=== PATIENT | male | born 1935 | race African-American/Black ===

== ENCOUNTER 2017-12-14 07:16 | Outpatient (CLI) | payer MEDICARE ==
--- NOTE | 2017-12-14 09:34 | Cat Scan Report ---
CT ABDOMEN WITHOUT CONTRAST: HISTORY: Weight loss, pancreatic dysfunction, liver dysfunction. COMPARISON: CT abdomen pelvis without contrast dated 11/16/12. TECHNIQUE: Helical CT in 1.25mm intervals without IV contrast. Sagittal and coronal reconstructions. FINDINGS: Lung bases: Adequately aerated. Minor scarring in the right middle lobe is noted. Mild cardiomegaly. Liver: The liver appears normal size, contour and attenuation. A 2 cm left hepatic lobe cyst is unchanged. No obvious parenchymal lung disease or liver mass on noncontrast CT. Biliary system: Normal. Pancreas: Within normal limits. Spleen: Normal. 7.7 cm in length. Kidneys/ureters: The kidneys are normal size, contour and position. A 1 cm exophytic cyst is noted near the superior pole of the left kidney. No obvious mass, calcifications or hydronephrosis. The visualized ureters are unremarkable. Adrenal glands: Normal. Aorta: Mild distal calcifications. No aneurysm. Intestines: No evidence for obstruction or focal inflammation in the visualized GI tract. There does appear to be 2 small polypoid lesions in the descending duodenum near the level of the pancreatic head measuring up to 1.1 cm. The clinical significance of these are unclear. These could represent polyps. The remainder of the visualized small bowel is within normal limits. There is moderate stool in the proximal colon. Appendix: Normal. Ascites: None. Adenopathy: None. Musculoskeletal: Intact. Moderate thoracolumbar spondylosis is noted. No fracture or suspicious bony lesion. IMPRESSION: Mild cardiomegaly. 2 polypoid lesions are suggested in the descending duodenum as outlined above which are of uncertain clinical significance. Consider direct visualization with EGD. Solitary liver cyst and left renal cyst.
== END 2017-12-14 07:17 | disposition home or self-care (01) ==
LOC: CT 07:16
PROVIDERS: ATTEND Family Medicine
DX: I51.7 Cardiomegaly (principal); N28.1 Cyst of kidney, acquired; K76.89 Other specified diseases of liver; N18.6 End stage renal disease
CPT/HCPCS: 74150

== ENCOUNTER 2019-05-25 23:17 | Emergency (ER) | payer MEDICARE ==
[2019-05-25] MEDS ORDERED: hydrALAZINE 20 MG/1 ML INJ IV ONE (23:55)
--- NOTE | 2019-05-26 00:12 | Emergency Department Report ---
ED General Adult HPI - General Chief complaint: High BP Stated complaint: HEADACHE HTN Time Seen by Provider: 05/25/19 23:29 Source: patient, family, EMS Mode of arrival: Stretcher Limitations: Language Barrier - History of Present Illness Initial comments: Patient is an 83-year-old male presents emergency room with complaints of elevated blood pressure that began today. The patient states he has associated headache and dizziness for the last 2 hours. He states he is also had a dry cough for a month. He denies any vision changes, chest pain, shortness of breath, palpitations, leg swelling, numbness, weakness. He has a past medical history of hypertension, diabetes, BPH. He takes nifedipine, Benzapril, Lasix. He has not missed any doses. He denies any cardiac history. language interpretation by patient's daughter - Related Data Previous Rx's Medication Instructions Recorded Last Taken Type Amoxicillin 500 mg PO Q8H #30 capsule 03/14/18 Unknown Rx Losartan [Cozaar] 25 mg PO QDAY #30 tablet 05/26/19 Unknown Rx Allergies Allergy/AdvReac Type Severity Reaction Status Date / Time No Known Allergies Allergy Unverified 12/14/17 07:17 ED Review of Systems ROS: Stated complaint: HEADACHE HTN Other details as noted in HPI Comment: All other systems reviewed and negative ED Past Medical Hx - Past Medical History Previous Medical History?: Yes Hx Hypertension: Yes Hx Diabetes: Yes - Surgical History Past Surgical History?: No - Social History Smoking Status: Never Smoker Substance Use Type: None - Medications Home Medications: Home Medications Medication Instructions Recorded Confirmed Last Taken Type Amoxicillin 500 mg PO Q8H #30 capsule 03/14/18 Unknown Rx Losartan [Cozaar] 25 mg PO QDAY #30 tablet 05/26/19 Unknown Rx ED Physical Exam - General Limitations: Language Barrier General appearance: alert, in no apparent distress - Head Head exam: Present: atraumatic, normocephalic - Eye Eye exam: Present: normal appearance, PERRL, EOMI - ENT ENT exam: Present: mucous membranes moist - Respiratory Respiratory exam: Present: normal lung sounds bilaterally. Absent: respiratory distress, wheezes, rales, rhonchi, stridor, chest wall tenderness, accessory muscle use, decreased breath sounds, prolonged expiratory - Cardiovascular Cardiovascular Exam: Present: regular rate, normal rhythm, normal heart sounds. Absent: systolic murmur, diastolic murmur, rubs, gallop - GI/Abdominal GI/Abdominal exam: Present: soft, normal bowel sounds. Absent: distended, tenderness, guarding, rebound, rigid - Extremities Exam Extremities exam: Absent: pedal edema - Neurological Exam Neurological exam: Present: alert, oriented X3, CN II-XII intact, normal gait, other (normal finger to nose, normal heel to carrillo, 5/5 strength in the BUE/BLE, sensation intact, no focal neuro deficit). Absent: motor sensory deficit - Psychiatric Psychiatric exam: Present: normal affect, normal mood - Skin Skin exam: Present: warm, dry, intact ED Course Vital Signs 05/25/19 05/26/19 05/26/19 23:35 00:00 00:33 Temperature 97.8 F Pulse Rate 63 Respiratory 18 Rate Blood Pressure 203/69 168/62 175/60 O2 Sat by Pulse 100 95 95 Oximetry 05/26/19 05/26/19 05/26/19 00:37 01:00 01:15 Temperature Pulse Rate 70 Respiratory Rate Blood Pressure 175/60 145/54 168/62 O2 Sat by Pulse 98 98 Oximetry 05/26/19 05/26/19 05/26/19 01:30 01:41 01:45 Temperature Pulse Rate Respiratory 18 Rate Blood Pressure 131/54 155/55 O2 Sat by Pulse 97 100 98 Oximetry ED Medical Decision Making - Lab Data Result diagrams: 05/26/19 00:02 05/26/19 00:02 Lab Results 05/26/19 05/26/19 05/26/19 Range/Units 00:02 00:02 00:02 WBC 5.9 (4.5-11.0) K/mm3 RBC 3.45 L (3.65-5.03) M/mm3 Hgb 11.7 L (11.8-15.2) gm/dl Hct 34.5 L (35.5-45.6) % MCV 100 H (84-94) fl MCH 34 H (28-32) pg MCHC 34 (32-34) % RDW 13.7 (13.2-15.2) % Plt Count 219 (140-440) K/mm3 Eos % (Auto) Hairspring Adjuster Add Manual Diff Complete Total Counted 100 Seg Neuts % (Manual) 47.0 (40.0-70.0) % Band Neutrophils % 2.0 % Lymphocytes % (Manual) 21.0 (13.4-35.0) % Reactive Lymphs % (Man) 0 % Monocytes % (Manual) 4.0 (0.0-7.3) % Eosinophils % (Manual) 23.0 H (0.0-4.3) % Basophils % (Manual) 3.0 H (0.0-1.8) % Metamyelocytes % 0 % Myelocytes % 0 % Promyelocytes % 0 % Blast Cells % 0 % Nucleated RBC % Not Reportable Seg Neutrophils # Man 2.8 (1.8-7.7) K/mm3 Band Neutrophils # 0.1 K/mm3 Lymphocytes # (Manual) 1.2 (1.2-5.4) K/mm3 Abs React Lymphs (Man) 0.0 K/mm3 Monocytes # (Manual) 0.2 (0.0-0.8) K/mm3 Eosinophils # (Manual) 1.4 H (0.0-0.4) K/mm3 Basophils # (Manual) 0.2 H (0.0-0.1) K/mm3 Metamyelocytes # 0.0 K/mm3 Myelocytes # 0.0 K/mm3 Promyelocytes # 0.0 K/mm3 Blast Cells # 0.0 K/mm3 WBC Morphology Not Reportable Hypersegmented Neuts Not Reportable Hyposegmented Neuts Not Reportable Hypogranular Neuts Not Reportable Smudge Cells Not Reportable Toxic Granulation Not Reportable Toxic Vacuolation Not Reportable Dohle Bodies Not Reportable Pelger-Huet Anomaly Not Reportable Devante Rods Not Reportable Platelet Estimate Consistent w auto Clumped Platelets Not Reportable Plt Clumps, EDTA Not Reportable Large Platelets Not Reportable Giant Platelets Not Reportable Platelet Satelliting Not Reportable Plt Morphology Comment Not Reportable RBC Morphology Not Reportable Dimorphic RBCs Not Reportable Polychromasia Not Reportable Hypochromasia Not Reportable Poikilocytosis Not Reportable Anisocytosis Not Reportable Microcytosis Not Reportable Macrocytosis Few Spherocytes Not Reportable Pappenheimer Bodies Not Reportable Sickle Cells Not Reportable Target Cells Not Reportable Tear Drop Cells Not Reportable Ovalocytes Few Helmet Cells Not Reportable Galloway-Reydon Bodies Not Reportable [place] Rings Not Reportable [place] Cells Not Reportable Bite Cells Not Reportable Crenated Cell Not Reportable Elliptocytes Not Reportable Acanthocytes (Spur) Not Reportable Rouleaux Not Reportable Hemoglobin C Crystals Not Reportable Schistocytes Not Reportable Malaria parasites Not Reportable King Bodies Not Reportable Hem Pathologist Commnt No Sodium 131 L (137-145) mmol/L Potassium 4.2 (3.6-5.0) mmol/L Chloride 95.1 L (98-107) mmol/L Carbon Dioxide 24 (22-30) mmol/L Anion Gap 16 mmol/L BUN 27 H (9-20) mg/dL Creatinine 1.2 (0.8-1.5) mg/dL Estimated GFR 58 ml/min BUN/Creatinine Ratio 23 % Glucose 117 H (75-100) mg/dL Calcium 9.6 (8.4-10.2) mg/dL Phosphorus 3.80 (2.5-4.5) mg/dL Magnesium 2.00 (1.7-2.3) mg/dL Total Bilirubin 0.20 (0.1-1.2) mg/dL AST 23 (5-40) units/L ALT 15 (7-56) units/L Alkaline Phosphatase 85 (35-129) units/L Total Creatine Kinase 109 (55-170) units/L Troponin T < 0.010 (0.00-0.029) ng/mL Total Protein 7.1 (6.3-8.2) g/dL Albumin 3.8 L (3.9-5) g/dL Albumin/Globulin Ratio 1.2 % Urine Color (Yellow) Urine Turbidity (Clear) Urine pH (5.0-7.0) Ur Specific [place] (1.003-1.030) Urine Protein (Negative) mg/dL Urine Glucose (UA) (Negative) mg/dL Urine Ketones (Negative) mg/dL Urine Blood (Negative) Urine Nitrite (Negative) Urine Bilirubin (Negative) Urine Urobilinogen (<2.0) mg/dL Ur Leukocyte Esterase (Negative) Urine WBC (Auto) (0.0-6.0) /HPF Urine RBC (Auto) (0.0-6.0) /HPF 05/26/19 Range/Units 00:45 WBC (4.5-11.0) K/mm3 RBC (3.65-5.03) M/mm3 Hgb (11.8-15.2) gm/dl Hct (35.5-45.6) % MCV (84-94) fl MCH (28-32) pg MCHC (32-34) % RDW (13.2-15.2) % Plt Count (140-440) K/mm3 Eos % (Auto) Add Manual Diff Total Counted Seg Neuts % (Manual) (40.0-70.0) % Band Neutrophils % % Lymphocytes % (Manual) (13.4-35.0) % Reactive Lymphs % (Man) % Monocytes % (Manual) (0.0-7.3) % Eosinophils % (Manual) (0.0-4.3) % Basophils % (Manual) (0.0-1.8) % Metamyelocytes % % Myelocytes % % Promyelocytes % % Blast Cells % % Nucleated RBC % Seg Neutrophils # Man (1.8-7.7) K/mm3 Band Neutrophils # K/mm3 Lymphocytes # (Manual) (1.2-5.4) K/mm3 Abs React Lymphs (Man) K/mm3 Monocytes # (Manual) (0.0-0.8) K/mm3 Eosinophils # (Manual) (0.0-0.4) K/mm3 Basophils # (Manual) (0.0-0.1) K/mm3 Metamyelocytes # K/mm3 Myelocytes # K/mm3 Promyelocytes # K/mm3 Blast Cells # K/mm3 WBC Morphology Hypersegmented Neuts Hyposegmented Neuts Hypogranular Neuts Smudge Cells Toxic Granulation Toxic Vacuolation Dohle Bodies Pelger-Huet Anomaly Devante Rods Platelet Estimate Clumped Platelets Plt Clumps, EDTA Large Platelets Giant Platelets Platelet Satelliting Plt Morphology Comment RBC Morphology Dimorphic RBCs Polychromasia Hypochromasia Poikilocytosis Anisocytosis Microcytosis Macrocytosis Spherocytes Pappenheimer Bodies Sickle Cells Target Cells Tear Drop Cells Ovalocytes Helmet Cells Galloway-Reydon Bodies [place] Rings Renetta Cells Bite Cells Crenated Cell Elliptocytes Acanthocytes (Spur) Rouleaux Hemoglobin C Crystals Schistocytes Malaria parasites King Bodies Hem Pathologist Commnt Sodium (137-145) mmol/L Potassium (3.6-5.0) mmol/L Chloride (98-107) mmol/L Carbon Dioxide (22-30) mmol/L Anion Gap mmol/L BUN (9-20) mg/dL Creatinine (0.8-1.5) mg/dL Estimated GFR ml/min BUN/Creatinine Ratio % Glucose (75-100) mg/dL Calcium (8.4-10.2) mg/dL Phosphorus (2.5-4.5) mg/dL Magnesium (1.7-2.3) mg/dL Total Bilirubin (0.1-1.2) mg/dL AST (5-40) units/L ALT (7-56) units/L Alkaline Phosphatase (35-129) units/L Total Creatine Kinase (55-170) units/L Troponin T (0.00-0.029) ng/mL Total Protein (6.3-8.2) g/dL Albumin (3.9-5) g/dL Albumin/Globulin Ratio % Urine Color Colorless (Yellow) Urine Turbidity Clear (Clear) Urine pH 7.0 (5.0-7.0) Ur Specific [place] 1.004 (1.003-1.030) Urine Protein >500 (Negative) mg/dL Urine Glucose (UA) Neg (Negative) mg/dL Urine Ketones Neg (Negative) mg/dL Urine Blood Sm (Negative) Urine Nitrite Neg (Negative) Urine Bilirubin Neg (Negative) Urine Urobilinogen < 2.0 (<2.0) mg/dL Ur Leukocyte Esterase Neg (Negative) Urine WBC (Auto) 1.0 (0.0-6.0) /HPF Urine RBC (Auto) 3.0 (0.0-6.0) /HPF - Radiology Data Radiology results: report reviewed CT BRAIN: 05/26/2019 INDICATION / CLINICAL INFORMATION: Headache, HTN Urgency. COMPARISON: None available. FINDINGS: BRAIN/INTRACRANIAL STRUCTURES: Unenhanced CT images of the brain demonstrate no evidence of acute intracranial abnormality. Ventricles and sulci are prominent in size, consistent with normal age-related atrophic change There is no evidence of acute ischemic injury, hemorrhage, or mass. There are no abnormal extra- axial fluid collections. Atherosclerotic vascular calcifications are present in the distal internal carotid arteries and vertebral arteries. EXTRACRANIAL STRUCTURES: Unremarkable. IMPRESSION: No acute abnormality. Chronic and age-related changes. All CT scans at this location are performed using dose reduction to SHEREEN painting of automated exposure control. Signer Name: Lex Schultz MD Signed: 05/26/2019 12:46 AM Workstation Name: [email or web address] Transcribed By: JACINTO Dictated By: Lex Schultz MD Electronically Authenticated By: Lex Schultz MD Signed Date/Time: 05/26/196 DD/ TD/TT: CHEST 2 VIEWS, 05/26/2019 12:12 AM INDICATION: Hypertension. Cough for one month. COMPARISON: None FINDINGS: Support devices: None Heart: The heart is normal in size. Lungs/pleura: The lungs are clear of focal airspace disease or significant pleural effusion. Additional findings: There are moderate bony degenerative changes of the thoracic spine. IMPRESSION: 1. No evidence of acute cardiopulmonary process. Signer Name: Pati Mckeon MD Signed: 05/26/2019 12:39 AM Workstation Name: [id number] Transcribed By: AMADOR Dictated By: Pati Mckeon MD Electronically Authenticated By: Pati Mckeon MD Signed Date/Time: 05/26/1938 DD/ TD/TT: - Medical Decision Making Patient is an 83-year-old male presents emergency room with complaints of elevated blood pressure that began today. The patient states he has associated headache and dizziness for the last 2 hours. He states he is also had a dry cough for a month. He denies any vision changes, chest pain, shortness of breath, palpitations, leg swelling, numbness, weakness. He has a past medical history of hypertension, diabetes, BPH. He takes nifedipine, Benzapril, Lasix. He has not missed any doses. He denies any cardiac history. language interpretation by patient's daughter. initial vitals with elevated blood pressure which improved upon 5mg of IV hydralazine. CBC with very mild anemia. BMP with very mild dehydration given 1L NS. UA with proteinuria, otherwise stable. CT head: No acute abnormality. Chronic and age-related changes. CXR: 1. No evidence of acute cardiopulmonary process. on reassessment pt is feeling much better and his headache has completely resolved. pt given prescription for losartan, advised pt to stop taking benazepril due to chronic dry cough. advised pt please stop taking benazepril and begin taking losartan. Follow-up with your primary care doctor in the next 2-3 days. Please keep a blood pressure log and take your blood pressure 3 times a day and take this to your primary care doctor. Increase your water intake. Eat a low-sodium diet. Return to the emergency room immediately for any new or worsening symptoms including but not limited to worsening headache, vision changes, vomiting, numbness, weakness, confusion, etc. discussed case with Dr. Ray who agreed with plan and discharge to follow up with PCP as an outpatient. - Differential Diagnosis HTN urgency, HTN emergency, ICH, SAH, aortic dissection, CAMILLA Critical care attestation.: If time is entered above; I have spent that time in minutes in the direct care of this critically ill patient, excluding procedure time. ED Disposition Clinical Impression: Elevated blood pressure reading Hypertension Qualifiers: Hypertension type: unspecified Qualified Code(s): I10 - Essential (primary) hypertension Headache Qualifiers: Headache type: unspecified Headache chronicity pattern: acute headache Intractability: not intractable Qualified Code(s): R51 - Headache Disposition: DC- TO HOME OR SELFCARE Is pt being admited?: No Does the pt Need Aspirin: No Condition: Stable Instructions: Hypertension (ED) Additional Instructions: Please stop taking benazepril and begin taking losartan. Follow-up with your primary care doctor in the next 2-3 days. Please keep a blood pressure log and take your blood pressure 3 times a day and take this to your primary care doctor. Increase your water intake. Eat a low-sodium diet. Return to the emergency room immediately for any new or worsening symptoms including but not limited to worsening headache, vision changes, vomiting, numbness, weakness, confusion, etc. Prescriptions: Losartan [Cozaar] 25 mg PO QDAY #30 tablet Referrals: PRIMARY CAREMD [Primary Care Provider] - 2-3 Days Time of Disposition: 01:46 Print Language: CZECH
[2019-05-26 00:21] LABS: Hematocrit 34.5 % (35.5-45.6); Hemoglobin 11.7 gm/dl (11.8-15.2); Mean Corpuscular HGB Conc 34 % (32-34); Mean Corpuscular Volume 100 fl (84-94); Platelet Count 219 K/mm3 (140-440); Red Blood Count 3.45 M/mm3 (3.65-5.03); Red Cell Distribution Width 13.7 % (13.2-15.2)
[2019-05-26 00:39] LABS: Albumin 3.8 g/dL (3.9-5); Calcium 9.6 mg/dL (8.4-10.2)
[2019-05-26] MEDS ORDERED: SODIUM CHLORIDE 0.9% 1000 ML 1,000 ML IV ONE (00:42)
--- NOTE | 2019-05-26 00:43 | XRay Report ---
CHEST 2 VIEWS, 05/26/2019 12:12 AM INDICATION: Hypertension. Cough for one month. COMPARISON: None FINDINGS: Support devices: None Heart: The heart is normal in size. Lungs/pleura: The lungs are clear of focal airspace disease or significant pleural effusion. Additional findings: There are moderate bony degenerative changes of the thoracic spine. IMPRESSION: 1. No evidence of acute cardiopulmonary process. Signer Name: Pati Mckeon MD Signed: 05/26/2019 12:39 AM Workstation Name: [email or web address]
--- NOTE | 2019-05-26 00:50 | Cat Scan Report ---
CT BRAIN: 05/26/2019 INDICATION / CLINICAL INFORMATION: Headache, HTN Urgency. COMPARISON: None available. FINDINGS: BRAIN/INTRACRANIAL STRUCTURES: Unenhanced CT images of the brain demonstrate no evidence of acute int racranial abnormality. Ventricles and sulci are prominent in size, consistent with normal age-related atrophic change There is no evidence of acute ischemic injury, hemorrhage, or mass. There are no abnormal extra-axial fluid collections. Atherosclerotic vascular calcifications are present in the distal internal carotid arteries and verte bral arteries. EXTRACRANIAL STRUCTURES: Unremarkable. IMPRESSION: No acute abnormality. Chronic and age-related changes. All CT scans at this location are performed using dose reduction to ALARA by means of automated expos ure control. Signer Name: Lex Schultz MD Signed: 05/26/2019 12:46 AM Workstation Name: [email or web address]
[2019-05-26 00:57] LABS: Bilirubin,Urine NEG (Negative); Blood,Urine SM (Negative); Color,Urine Colorless (Yellow); Urobilinogen,Urine < 2.0 mg/dL (<2.0)
[2019-05-26 01:03] LABS: Protein,Urine >500 mg/dL (Negative)
[2019-05-26 01:59] VITALS: BP 155/55
[2019-05-26 03:11] LABS: Band Neutrophils # (Manual) 0.1 K/mm3; Ovalocytes Few; Total Cells Counted 100
[2019-05-26 03:12] LABS: Macrocytosis Few; Platelet Estimate Consistent w Auto
== END 2019-05-26 02:09 | disposition home or self-care (01) ==
LOC: ED 23:17
DX: I10 Essential (primary) hypertension (principal); R51 Headache; E11.9 Type 2 diabetes mellitus without complications; Z79.899 Other long term (current) drug therapy
CPT/HCPCS: 36415; 70450; 71046; 80053; 81001; 82550; 83735; 84100; 84484; 85007; 85025; 93005; 93010; 96361; 96374; J0360; J7030

== ENCOUNTER 2020-11-13 09:59 | Outpatient (CLI) | payer MEDICARE ==
--- NOTE | 2020-11-13 12:20 | Cat Scan Report ---
EXAMINATION: CT chest wo con, CT abdomen pelvis wo con. HISTORY: ABNORMAL WEIGHT LOSS,ABNORMAL RESULTS OF LIVER FUNCTION STUDY COMPARISON: CT from 12/14/2017. TECHNIQUE: Volumetric CT scan of the chest, abdomen, and pelvis was performed without IV contrast. Ax ial, coronal, and sagittal reconstructions were obtained. All CT scans at this location are performe d using CT dose reduction for ALARA by means of automated exposure control. FINDINGS: CHEST: Calcified atherosclerotic plaque is noted throughout the nonaneurysmal thoracic aorta and major brach es, to include the coronary arteries. There is cardiac enlargement without pericardial effusion. Thyr oid gland is unremarkable. Prominent but nonenlarged mediastinal lymph nodes. Evaluation for hilar ad enopathy is limited without intravenous contrast, though no hilar fullness is identified. There is no axillary lymphadenopathy. There is bibasilar volume loss. No focal infiltrate. No pleural effusion o r pneumothorax. No acute osseous findings. ABDOMEN/PELVIS: 3.2 cm hepatic cyst. Liver is otherwise unremarkable. Gallbladder is unremarkable and there is no joseluis iary dilatation. Pancreas, spleen, adrenals, kidneys and bladder are unremarkable. Prostate is not en larged. Moderate colonic stool burden. There is no evidence of colitis. Stomach and small bowel are normal in caliber. No small bowel obstruction or inflammation. Appendix is normal. Moderate atherosclerotic calcification of the abdominal aorta and major branching vessels. No evidenc e of aneurysm. Nonspecific small volume free fluid in the pelvis. No organized collection or free air . Moderate multilevel lumbar spondylosis. No acute process. IMPRESSION: 1. No acute abnormality of the chest, abdomen, or pelvis. No etiology to account for weight loss iden tified. 2. Moderate colonic stool burden. No evidence of colitis. 3. Other chronic and incidental findings as above. Signer Name: Isiah Aceves MD Signed: 11/13/2020 12:15 PM Workstation Name: [email or web address]
== END 2020-11-13 10:00 | disposition home or self-care (01) ==
LOC: CT 09:59
PROVIDERS: ATTEND Family Medicine
DX: K76.89 Other specified diseases of liver (principal); R63.4 Abnormal weight loss; R94.5 Abnormal results of liver function studies; D64.9 Anemia, unspecified; J90 Pleural effusion, not elsewhere classified; I70.0 Atherosclerosis of aorta; R59.0 Localized enlarged lymph nodes; R19.5 Other fecal abnormalities
CPT/HCPCS: 71250; 74176

== ENCOUNTER 2021-03-05 11:42 | Inpatient (IN) | payer MEDICARE ==
--- NOTE | 2021-03-05 12:01 | Event Note ---
ED Screening Note Date of service: 03/05/21 Time: 12:00 ED Screening Note: 85-year-old male presents emergency department with chief complaint of pain in his chest, vomiting and difficulty swallowing water after eating. Son at the bedside is translating states he was eating soup and no dense material when this started. He started to have pain in his chest and is having difficulty swallowing anything. Patient has past medical history of diabetes and hypertension. This initial assessment/diagnostic orders/clinical plan/treatment(s) is/are subject to change based on patients health status, clinical progression and re- assessment by fellow clinical providers in the ED. Further treatment and workup at subsequent clinical providers discretion. Patient/guardian urged not to elope from the ED as their condition may be serious if not clinically assessed and managed. Initial orders include: Cardiac protocol, lipase, chest x-ray
--- NOTE | 2021-03-05 12:36 | Emergency Department Report ---
ED General Adult HPI - General Chief complaint: Chest Pain Stated complaint: FEEL LIKE HE IS CHOKING, CHEST PAIN Time Seen by Provider: 03/05/21 12:15 Source: family Mode of arrival: Ambulatory Limitations: Language Barrier - History of Present Illness Initial comments: Patient is 85 years old male brought to the emergency room by his son who is translating for him. Patient son stated that he was drinking soup and all of a sudden he starts talking and spitting. Stated that he is unable to swallow anything even water. He also stated that he is complaining of mid chest pain since then. He described the chest pain as sharp with no radiation. Patient denied any fever or chills. No shortness of breath. Patient has history of diabetes and hypertension and both are well controlled according to the patient's son. - Related Data Previous Rx's Medication Instructions Recorded Last Taken Type Amoxicillin 500 mg PO Q8H #30 capsule 03/14/18 Unknown Rx Losartan [Cozaar] 25 mg PO QDAY #30 tablet 05/26/19 Unknown Rx Allergies Allergy/AdvReac Type Severity Reaction Status Date / Time No Known Allergies Allergy Verified 03/05/21 12:16 ED Review of Systems ROS: Stated complaint: FEEL LIKE HE IS CHOKING, CHEST PAIN Other details as noted in HPI Comment: All other systems reviewed and negative Constitutional: denies: chills, fever Respiratory: denies: cough, shortness of breath, SOB with exertion Cardiovascular: chest pain. denies: palpitations Gastrointestinal: denies: abdominal pain, nausea, vomiting Musculoskeletal: denies: back pain ED Past Medical Hx - Past Medical History Previous Medical History?: Yes Hx Hypertension: Yes Hx Diabetes: Yes - Social History Smoking Status: Never Smoker Substance Use Type: None - Medications Home Medications: Home Medications Medication Instructions Recorded Confirmed Last Taken Type Amoxicillin 500 mg PO Q8H #30 capsule 03/14/18 Unknown Rx Losartan [Cozaar] 25 mg PO QDAY #30 tablet 05/26/19 Unknown Rx ED Physical Exam - General Limitations: Language Barrier General appearance: alert, in no apparent distress - Head Head exam: Present: atraumatic, normocephalic, normal inspection - Eye Eye exam: Present: normal appearance, PERRL - ENT ENT exam: Present: normal exam, normal orophraynx, mucous membranes moist - Neck Neck exam: Present: normal inspection, full ROM. Absent: tenderness, meningismus - Respiratory Respiratory exam: Present: normal lung sounds bilaterally ( ). Absent: respiratory distress, wheezes, rales, rhonchi, chest wall tenderness, accessory muscle use, decreased breath sounds, prolonged expiratory - Cardiovascular Cardiovascular Exam: Present: regular rate, normal rhythm, normal heart sounds - GI/Abdominal GI/Abdominal exam: Present: soft, normal bowel sounds. Absent: distended, tenderness, guarding, rebound, rigid, organomegaly, mass, bruit, pulsatile mass, hernia - Extremities Exam Extremities exam: Present: normal inspection, full ROM, normal capillary refill. Absent: tenderness, pedal edema, joint swelling, calf tenderness - Back Exam Back exam: Present: normal inspection, full ROM. Absent: CVA tenderness (R), CVA tenderness (L), muscle spasm - Neurological Exam Neurological exam: Present: alert, oriented X3, CN II-XII intact, normal gait, reflexes normal. Absent: motor sensory deficit - Psychiatric Psychiatric exam: Present: normal mood - Skin Skin exam: Present: warm, intact, normal color ED Course Vital Signs 03/05/21 03/05/21 03/05/21 11:51 13:00 13:31 Temperature 97.8 F Pulse Rate 68 68 60 Respiratory 20 19 16 Rate Blood Pressure 159/47 162/48 162/48 O2 Sat by Pulse 98 99 96 Oximetry 03/05/21 03/05/21 03/05/21 14:00 14:22 14:30 Temperature Pulse Rate 54 L 66 Respiratory 14 16 18 Rate Blood Pressure 162/48 162/48 O2 Sat by Pulse 99 97 98 Oximetry 03/05/21 15:00 Temperature Pulse Rate 69 Respiratory 21 Rate Blood Pressure 162/48 O2 Sat by Pulse 97 Oximetry ED Medical Decision Making - Lab Data Result diagrams: 03/05/21 13:13 03/05/21 13:13 - EKG Data -: EKG Interpreted by Id EKG shows normal: sinus rhythm Rate: normal - EKG Data Interpretation: no acute changes - Radiology Data Radiology results: report reviewed - Medical Decision Making Patient is 85 years old male brought to the emergency room by his son who is translating for him. Patient son stated that he was drinking soup and all of a sudden he starts talking and spitting. Stated that he is unable to swallow anything even water. He also stated that he is complaining of mid chest pain since then. He described the chest pain as sharp with no radiation. Patient denied any fever or chills. No shortness of breath. Patient has history of diabetes and hypertension and both are well controlled according to the patient's son. EKG is unremarkable. Labs reviewed and is unremarkable including a negative troponin. Chest x-ray is negative for acute finding. Barium swallow is un remarkable. Patient is able to swallow water. I discussed the patient with his pedicurist on-call Dr. Ballard, advised to start patient on Protonix. I discussed the patient with Dr. Valero, he agreed to admit the patient to medical service for further management. Critical Care Time: Yes Critical care time in (mins) excluding proc time.: 30 Critical care attestation.: If time is entered above; I have spent that time in minutes in the direct care of this critically ill patient, excluding procedure time. ED Disposition Clinical Impression: Acute chest pain, Difficulty swallowing Disposition: 02 SHORT TERM HOSPITAL Is pt being admited?: Yes Condition: Stable Instructions: Chest Pain (ED)
--- NOTE | 2021-03-05 12:39 | XRay Report ---
CHEST 2 VIEWS INDICATION: Chest Pain possible esophageal FB. COMPARISON: None FINDINGS: Support devices: None. Heart: Within normal limits. Lungs/pleura: No acute air space or interstitial disease. No pneumothorax. Additional findings: No radiopaque foreign body is detected on x-ray. IMPRESSION: No acute findings. Signer Name: Kulwant Herron Jr, MD Signed: 03/05/2021 12:35 PM Workstation Name: [id number]
[2021-03-05 13:36] LABS: Basophils # (Auto) 0.1 K/mm3 (0.0-0.1); Basophils % (Auto) 1.3 % (0.0-1.8); Eosinophils # (Auto) 0.5 K/mm3 (0.0-0.4); Eosinophils % (Auto) 9.5 % (0.0-4.3); Hematocrit 34.1 % (35.5-45.6); Hemoglobin 11.3 gm/dl (11.8-15.2); Lymphocytes # (Auto) 1.4 K/mm3 (1.2-5.4); Lymphocytes % (Auto) 27.9 % (13.4-35.0); Mean Corpuscular HGB Conc 33 % (32-34); Mean Corpuscular Volume 100 fl (84-94); Monocytes # (Auto) 0.3 K/mm3 (0.0-0.8); Monocytes % (Auto) 6.5 % (0.0-7.3); Platelet Count 197 K/mm3 (140-440); Red Blood Count 3.42 M/mm3 (3.65-5.03); Red Cell Distribution Width 13.5 % (13.2-15.2)
[2021-03-05 13:43] LABS: INR 0.84 (0.87-1.13)
[2021-03-05 13:44] LABS: Partial Thromboplastin Time 29.3 Sec. (24.2-36.6)
--- NOTE | 2021-03-05 13:52 | Fluoroscopy Report ---
BARIUM SWALLOW Indication: suspected esophageal foreign body. Technique: Single contrast barium technique utilized to evaluate the esophagus. FINDINGS: To begin the exam, swallowing was evaluated in the lateral position under direct fluorosco py. Swallowing was normal. No mucosal irregularity, mass, mass effect, or critical stenosis. There were no abnormal tertiary c ontractions as seen with dysmotility. No gastroesophageal reflux. No radiopaque foreign body is detec yared IMPRESSION: Unremarkable exam. Fluoroscopic time: 0.9 minutes Number of fluoroscopic images: 31 Signer Name: Kulwant Herron Jr, MD Signed: 03/05/2021 1:47 PM Workstation Name: [id number]
[2021-03-05] MEDS ORDERED: MORPHINE 4 MG/1 ML INJ IV ONE (13:58)
[2021-03-05] MEDS ORDERED: ONDANSETRON 4 MG/2 ML INJ IV ONE (13:58)
[2021-03-05 14:12] LABS: Alanine Aminotransferase 16 units/L (7-56); Albumin 3.9 g/dL (3.9-5); BUN/Creatinine Ratio 21; Blood Urea Nitrogen 27 mg/dL (9-20); Calcium 9.4 mg/dL (8.4-10.2); Hemolysis Index 2
[2021-03-05 14:23] VITALS: BP 162/48
--- NOTE | 2021-03-05 14:47 | Cat Scan Report ---
NONENHANCED CT SCAN OF THE HEAD: INDICATION / CLINICAL INFORMATION: 85 years Male; Difficulty swallowing, suspected stroke. TECHNIQUE: Routine CT head without contrast. All CT scans at this location are performed using CT dos e reduction for ALARA by means of automated exposure control. COMPARISON: CT scan of the head from 05/26/2019 FINDINGS: BRAIN / INTRACRANIAL CONTENTS: No acute hemorrhage, mass effect, midline shift, hydrocephalus, or acu te, large territorial infarct. No chronic infarct or focal atrophy. Normal brain volume and ventricul ar/sulcal size for age. No significant white matter abnormality. Vascular calcification in the verteb ral arteries more on the left side and in the carotid arteries bilaterally. CT findings unchanged. CRANIOCERVICAL JUNCTION: No significant abnormality. ORBITS: No significant abnormality of visualized orbits. SINUSES / MASTOIDS: No significant abnormality of the visualized paranasal sinuses or mastoid air jessee ls. ADDITIONAL FINDINGS: None. IMPRESSION: No focal mass, hemorrhage, hydrocephalus, or acute, large territorial infarct. Signer Name: Daniel Loredo MD Signed: 03/05/2021 2:43 PM Workstation Name: [id number]
[2021-03-05] MEDS ORDERED: PANTOPRAZOLE 40 MG INJ IV ONE (17:07)
--- NOTE | 2021-03-05 18:08 | Event Note ---
Date: 03/05/21 Called by ED for consult for dysphagia. Came to evaluate patient but informed by nurse that patient left AMA.
--- NOTE | 2021-03-10 10:46 | Electrocardiograph Report ---
[facility] Test Date: 2021-03-05 Test Time: 12:29:43 Pat Name: TEREZA SMITH Department: Room: [place] [address] Gender: M Microscopist: DEVON : 1935 Requested By: AUBREE BOWDEN Order Number: [id number] Reading MD: Killian Holguin Measurements Intervals Liberal Rate: 64 P: 64 DC: 239 QRS: 12 QRSD: 93 T: 57 QT: 418 QTc: 433 Interpretive Statements Sinus rhythm Prolonged DC interval Probable left atrial enlargement Probable left ventricular hypertrophy No previous ECG available for comparison Electronically Signed On 03-10-2021 10:45:27 EDT by Killian Holguin
== END 2021-03-05 18:38 | disposition left against medical advice (07) | DRG 392 ==
LOC: ED 11:42 → 4A 15:44
PROVIDERS: ADMIT Internal Medicine; ATTEND Internal Medicine
DX: R13.10 Dysphagia, unspecified (principal); R07.89 Other chest pain; E11.9 Type 2 diabetes mellitus without complications; I10 Essential (primary) hypertension; Z79.899 Other long term (current) drug therapy; Z53.29 Procedure and treatment not carried out because of patient's decision for other reasons
CPT/HCPCS: 36415; 70450; 71046; 74220; 80053; 83690; 84484; 85025; 85610; 85730; 93005; G0378; J2270; J2405

== ENCOUNTER 2021-05-27 16:53 | Inpatient (IN) | payer MEDICARE ==
--- NOTE | 2021-05-27 17:03 | Event Note ---
ED Screening Note ED Screening Note: There is a language barrier, HPI is limited by that Patient states that yesterday he picked up a heavy box and reports that it was too heavy and he fell He states yesterday he was feeling fine He reports 1 hour prior to arrival he "began to feel very bad" He has associated headache, dizziness, left rib pain, neck pain Given head injury with new onset dizziness and elevated blood pressure, code stroke initiated This initial assessment/diagnostic orders/clinical plan/treatment(s) is/are subject to change based on patients health status, clinical progression and re- assessment by fellow clinical providers in the ED. Further treatment and workup at subsequent clinical providers discretion. Patient/guardian urged not to elope from the ED as their condition may be serious if not clinically assessed and managed. Initial orders include: Code stroke, CT cervical spine, x-ray ribs
--- NOTE | 2021-05-27 17:14 | Emergency Department Report ---
ED General Adult HPI - General Chief complaint: Neuro Symptoms/Deficit Stated complaint: H/A, DIZZINESS Time Seen by Provider: 05/27/21 17:08 Source: patient Mode of arrival: Ambulatory Limitations: Language Barrier - History of Present Illness Initial comments: Patient is a 85-year-old [place] male. Translation is by our nurse IV. Patient stated that he was working in his yard yesterday and he felt weak on the left side and he fell and now he is complaining of headache, dizziness. Patient stated the symptoms started yesterday at 2 PM. He denied any speech issues. No visual changes. Patient stated that he had history of diabetes and hyper tension. He stated that his blood sugar was more than 700 yesterday. Patient denies any fever or chills recently. No bowel or bladder incontinence. NIH score now is 0. - Related Data Previous Rx's Medication Instructions Recorded Last Taken Type Amoxicillin 500 mg PO Q8H #30 capsule 03/14/18 Unknown Rx Losartan [Cozaar] 25 mg PO QDAY #30 tablet 05/26/19 Unknown Rx Allergies Allergy/AdvReac Type Severity Reaction Status Date / Time No Known Allergies Allergy Verified 03/05/21 12:16 ED Review of Systems ROS: Stated complaint: H/A, DIZZINESS Other details as noted in HPI Comment: All other systems reviewed and negative Constitutional: denies: chills, fever Respiratory: denies: cough, shortness of breath, SOB with exertion Cardiovascular: denies: chest pain, palpitations Gastrointestinal: denies: abdominal pain, nausea, vomiting, diarrhea, constipation, hematemesis, melena, hematochezia Musculoskeletal: denies: back pain Neurological: denies: headache, weakness, numbness, paresthesias ( ) ED Past Medical Hx - Past Medical History Hx Hypertension: Yes Hx Diabetes: Yes - Social History Smoking Status: Never Smoker Substance Use Type: None - Medications Home Medications: Home Medications Medication Instructions Recorded Confirmed Last Taken Type Amoxicillin 500 mg PO Q8H #30 capsule 03/14/18 Unknown Rx Losartan [Cozaar] 25 mg PO QDAY #30 tablet 05/26/19 Unknown Rx ED Physical Exam - General Limitations: Language Barrier General appearance: alert, in no apparent distress - Head Head exam: Present: atraumatic, normocephalic, normal inspection - Eye Eye exam: Present: normal appearance - ENT ENT exam: Present: normal exam, normal orophraynx, mucous membranes moist - Neck Neck exam: Present: normal inspection, full ROM. Absent: tenderness, meningismus - Respiratory Respiratory exam: Present: normal lung sounds bilaterally - Cardiovascular Cardiovascular Exam: Present: regular rate, normal rhythm, normal heart sounds - GI/Abdominal GI/Abdominal exam: Present: soft, normal bowel sounds. Absent: distended, tenderness, guarding, rebound, rigid, organomegaly, mass, bruit, pulsatile mass, hernia - Extremities Exam Extremities exam: Present: normal inspection, full ROM, normal capillary refill. Absent: tenderness, pedal edema, joint swelling - Back Exam Back exam: Present: normal inspection, full ROM. Absent: CVA tenderness (R), CVA tenderness (L) - Neurological Exam Neurological exam: Present: alert, oriented X3, CN II-XII intact - Psychiatric Psychiatric exam: Present: normal mood - Skin Skin exam: Present: warm, intact, normal color ED Course Vital Signs 05/27/21 16:59 Pulse Rate 77 Respiratory 18 Rate Blood Pressure 190/51 [Right] O2 Sat by Pulse 98 Oximetry ED Medical Decision Making - Lab Data Result diagrams: 05/27/21 18:31 05/27/21 18:31 - EKG Data -: EKG Interpreted by Ok EKG shows normal: sinus rhythm Rate: normal - EKG Data Interpretation: no acute changes - Radiology Data Radiology results: report reviewed - Medical Decision Making Patient is a 85-year-old [place] male. Translation is by our nurse IV. Patient stated that he was working in his yard yesterday and he felt weak on the left side and he fell and now he is complaining of headache, dizziness. Patient stated the symptoms started yesterday at 2 PM. He denied any speech issues. No visual changes. Patient stated that he had history of diabetes and hypertension. He stated that his blood sugar was more than 700 yesterday. Patient denies any fever or chills recently. No bowel or bladder incontinence. CT brain is negative for acute finding. CT cervical spine is unremarkable. Chest x-ray with rib details showed no evidence of fracture. Labs reviewed and is unremarkable. Patient's symptoms most likely related to TIA since patient's symptoms completely resolved within 24 hours. Patient will need to be admitted to the hospital for stroke work-up. I discussed the patient with Dr. Underwood, he agreed to admit the patient to medical service for further management. Critical care attestation.: If time is entered above; I have spent that time in minutes in the direct care of this critically ill patient, excluding procedure time. ED Disposition Clinical Impression: TIA (transient ischemic attack), Fall Disposition: 09 ADMITTED INPATIENT Is pt being admited?: Yes Condition: Stable
--- NOTE | 2021-05-27 17:28 | XRay Report ---
LEFT RIBS 3 VIEWS INDICATION / CLINICAL INFORMATION: fall, left rib pain. COMPARISON: None available. FINDINGS: RIBS: No acute, displaced fracture or other acute abnormality. LUNGS: No acute findings. No pneumothorax. Signer Name: Nasir Blount MD Signed: 05/27/2021 5:23 PM Workstation Name: [id number]
--- NOTE | 2021-05-27 18:03 | Cat Scan Report ---
CT head/brain wo con INDICATION / CLINICAL INFORMATION: 85 years Male; Stroke symptoms. TECHNIQUE: Routine CT head without contrast. All CT scans at this location are performed using CT dos e reduction for ALARA by means of automated exposure control. COMPARISON: 03/05/2021 FINDINGS: BRAIN / INTRACRANIAL CONTENTS: No acute hemorrhage, mass effect, midline shift, hydrocephalus, or acu te, large territorial infarct. Mild, diffuse cerebral atrophy. No significant white matter abnormality seen. CRANIOCERVICAL JUNCTION: No significant abnormality. ORBITS: No significant abnormality of visualized orbits. SINUSES / MASTOIDS: There is partial opacification of the hypoplastic mastoid air cells on the left. Mild mucosal thickening seen in the left middle ear cavity. Mild to moderate mucosal thickening noted in the ethmoids. ADDITIONAL FINDINGS: Atherosclerotic disease is seen in the anterior and posterior circulation. Poor dentition noted. IMPRESSION: 1. No focal mass, hemorrhage, hydrocephalus, or acute, large territorial infarct. CODE STROKE: Exam Completed (KNITTING MACHINE FIXER/CDT): 05/27/2021 4:28 PM Exam Reviewed (KNITTING MACHINE FIXER/CDT): 4:50 PM Time of Communication (KNITTING MACHINE FIXER/CDT): 4:55 PM Licensed Practitioner Receiving Report: Dr. Alonso Signer Name: Johny Pascual MD, III Signed: 05/27/2021 5:58 PM Workstation Name: [email or web address]
--- NOTE | 2021-05-27 18:07 | Cat Scan Report ---
CT cervical spine wo con INDICATION / CLINICAL INFORMATION: 85 years Male; fall, neck pain. TECHNIQUE: Axial CT images of the cervical spine were obtained. Sagittal and coronal reformatted images were pr oduced. All CT scans at this location are performed using CT dose reduction for ALARA by means of aut omated exposure control. COMPARISON: None available. FINDINGS: POST-SURGICAL CHANGES: None. ALIGNMENT: No significant abnormality. VERTEBRAE: No signs of fracture. Vertebral bodies are grossly normal in height throughout. Significant osseous foraminal narrowing seen on the left at C5-6 and C6-7 from facet and uncinate hyp ertrophy. Similar findings noted on the right at C3-4 and to lesser degree at C4-5. Multilevel facet hypertrophy seen. INTRAVERTEBRAL DISCS: Multilevel, mild disc space narrowing seen. There is disc disease at C4-5 and C 5-6. Mild to moderate canal narrowing seen at these levels. Follow-up with MRI of the cervical spine, as clinically warranted. PARASPINAL SOFT TISSUES: Mild to moderate mucosal thickening seen in the ethmoids. ADDITIONAL FINDINGS: Calcification seen along the ligamentum nuchae a, which should be of no clinical significance. IMPRESSION: 1. No signs of acute bony trauma to the cervical spine. Signer Name: Johny Pascual MD, III Signed: 05/27/2021 6:02 PM Workstation Name: [id number]
[2021-05-27 18:44] LABS: Basophils # (Auto) 0.1 K/mm3 (0.0-0.1); Basophils % (Auto) 0.9 % (0.0-1.8); Eosinophils # (Auto) 0.2 K/mm3 (0.0-0.4); Eosinophils % (Auto) 3.4 % (0.0-4.3); Hematocrit 35.9 % (35.5-45.6); Lymphocytes # (Auto) 0.7 K/mm3 (1.2-5.4); Lymphocytes % (Auto) 10.1 % (13.4-35.0); Mean Corpuscular HGB Conc 34 % (32-34); Mean Corpuscular Volume 98 fl (84-94); Monocytes # (Auto) 0.5 K/mm3 (0.0-0.8); Monocytes % (Auto) 6.9 % (0.0-7.3); Platelet Count 249 K/mm3 (140-440); Red Blood Count 3.65 M/mm3 (3.65-5.03); Red Cell Distribution Width 13.3 % (13.2-15.2)
[2021-05-27 18:54] LABS: INR 0.8 (0.87-1.13)
[2021-05-27 18:55] LABS: Partial Thromboplastin Time 28.3 Sec. (24.2-36.6); Thrombin Time 15.8 Sec. (15.1-19.6)
[2021-05-27 19:05] LABS: Creatine Kinase MB 3.1 ng/mL (0.0-4.0)
[2021-05-27 19:07] LABS: Alanine Aminotransferase 29 units/L (7-56); Albumin 4.1 g/dL (3.9-5); BUN/Creatinine Ratio 19; Blood Urea Nitrogen 28 mg/dL (9-20); Calcium 8.6 mg/dL (8.4-10.2); Hemolysis Index 5
[2021-05-28] MEDS ORDERED: hydrALAZINE 20 MG/1 ML INJ IV ONE (00:01)
[2021-05-28] MEDS ORDERED: ACETAMINOPHEN 325 MG TAB PO PRN (00:52)
[2021-05-28] MEDS ORDERED: DEXTROSE 50% IN WATER (25GM) 50 ML SYRINGE IV PRN (00:52)
[2021-05-28] MEDS ORDERED: MORPHINE 2 MG/1 ML INJ IV PRN (00:52)
[2021-05-28] MEDS ORDERED: ALBUTEROL 2.5 MG/3 ML NEBU IH PRN (00:52)
[2021-05-28] MEDS ORDERED: HYDROmorphone 1 MG/1 ML INJ IV PRN (00:52)
[2021-05-28] MEDS ORDERED: ONDANSETRON 4 MG/2 ML INJ IV PRN (00:52)
[2021-05-28] MEDS ORDERED: SODIUM CHLORIDE 0.9% 1000 ML 1,000 ML IV SCH (01:00)
--- NOTE | 2021-05-28 01:02 | History and Physical Report ---
History of Present Illness Date of examination: 05/28/21 Date of admission: 05/27/21 22:42 Chief complaint: [place] weak on the left side and fall History of present illness: 85-year-old Cypriot male with history of diabetes and hypertension was brought to the emergency room because of left-sided weakness since yesterday. Patient was working in his yard yesterday and he felt weak on the left side and he fell and now he is complaining of headache, dizziness. Patient stated the symptoms started yesterday at 2 PM. He denied any speech issues. No visual changes. Patient stated that his blood sugar was more than 700 yesterday. Patient denies any fever or chills recently. No bowel or bladder incontinence. CT brain is negative for acute finding. CT cervical spine is unremarkable. Chest x-ray with rib details showed no evidence of fracture. Labs reviewed and is unremarkable. Patient's symptoms most likely related to TIA since patient's symptoms completely resolved within 24 hours. Patient will need to be admitted to the hospital for stroke work-up. Past History Past Medical History: diabetes, hypertension Medications and Allergies Allergies Allergy/AdvReac Type Severity Reaction Status Date / Time No Known Allergies Allergy Verified 03/05/21 12:16 Home Medications Medication Instructions Recorded Confirmed Last Taken Type Amoxicillin 500 mg PO Q8H #30 capsule 03/14/18 Unknown Rx Losartan [Cozaar] 25 mg PO QDAY #30 tablet 05/26/19 Unknown Rx Review of Systems All systems: negative Constitutional: weakness, other Neurological: weakness Exam - Constitutional Vitals: Temp Pulse Resp BP Pulse Ox 72 18 238/77 98 05/28/21 00:29 05/27/21 16:59 05/28/21 00:29 05/27/21 16:59 General appearance: Present: no acute distress, well-nourished - EENT Eyes: Present: PERRL ENT: hearing intact, clear oral mucosa - Neck Neck: Present: supple, normal ROM - Respiratory Respiratory effort: normal Respiratory: bilateral: diminished - Cardiovascular Heart Sounds: Present: S1 & S2. Absent: rub, click - Extremities Extremities: pulses symmetrical, No edema Peripheral Pulses: within normal limits - Abdominal General gastrointestinal: Present: soft, non-tender, non-distended, normal bowel sounds Male genitourinary: Present: normal - Integumentary Integumentary: Present: clear, warm, dry - Musculoskeletal Musculoskeletal: gait normal, strength equal bilaterally - Psychiatric Psychiatric: appropriate mood/affect, intact judgment & insight - Neurologic Neurologic: CNII-XII intact, moves all extremities HEART Score - HEART Score Troponin: Troponin T < 0.010 ng/mL (0.00-0.029) 05/27/21 18: Results - Labs CBC & Chem 7: 05/27/21 18:31 05/27/21 18: Labs: Laboratory Last Values WBC 6.8 K/mm3 (4.5-11.0) 05/27/21 18: RBC 3.65 M/mm3 (3.65-5.03) 05/27/21: Hgb 12.0 gm/dl (11.8-15.2) 05/27/21: Hct 35.9 % (35.5-45.6) 05/27/21: MCV 98 fl (84-94) H 05/27/21: MCH 33 pg (28-32) H 05/27/21: MCHC 34 % (32-34) 05/27/21 18: RDW 13.3 % (13.2-15.2) 05/27/21: Plt Count 249 K/mm3 (140-440) 05/27/21: Lymph % (Auto) 10.1 % (13.4-35.0) L 05/27/21: [place] % (Auto) 6.9 % (0.0-7.3) 05/27/21: Eos % (Auto) 3.4 % (0.0-4.3) 05/27/21 18: Baso % (Auto) 0.9 % (0.0-1.8) 05/27/21: Lymph # (Auto) 0.7 K/mm3 (1.2-5.4) L 05/27/21: Webb # (Auto) 0.5 K/mm3 (0.0-0.8) 05/27/21: Eos # (Auto) 0.2 K/mm3 (0.0-0.4) 05/27/21 18: Baso # (Auto) 0.1 K/mm3 (0.0-0.1) 05/27/21 18:31 Seg Neutrophils % 78.7 % (40.0-70.0) H 05/27/21 18:31 Seg Neutrophils # 5.3 K/mm3 (1.8-7.7) 05/27/21 18:31 PT 12.0 Sec. (12.2-14.9) L 05/27/21 18:31 INR 0.80 (0.87-1.13) L 05/27/21 18: APTT 28.3 Sec. (24.2-36.6) 05/27/21 18: Thrombin Time 15.8 Sec. (15.1-19.6) 05/27/21 18:31 Sodium 131 mmol/L (137-145) L 05/27/21 18:31 Potassium 4.3 mmol/L (3.6-5.0) 05/27/21 18:31 Chloride 96.7 mmol/L (98-107) L 05/27/21 18:31 Carbon Dioxide 19 mmol/L (22-30) L 05/27/21 18:31 Anion Gap 20 mmol/L 05/27/21 18:31 BUN 28 mg/dL (9-20) H 05/27/21 18:31 Creatinine 1.5 mg/dL (0.8-1.3) H 05/27/21 18:31 Estimated GFR 44 ml/min 05/27/21 18:31 BUN/Creatinine Ratio 19 % 05/27/21 18:31 Glucose 192 mg/dL (75-100) H 05/27/21 18:31 POC Glucose 219 mg/dL (70-105) H 05/27/21 16:56 Calcium 8.6 mg/dL (8.4-10.2) 05/27/21 18:31 Total Bilirubin 0.20 mg/dL (0.1-1.2) 05/27/21 18:31 AST 22 units/L (5-40) 05/27/21 18:31 ALT 29 units/L (7-56) 05/27/21 18:31 Alkaline Phosphatase 112 units/L (35-129) 05/27/21 18:31 Total Creatine Kinase 137 units/L (55-170) 05/27/21 18:31 CK-MB (CK-2) 3.1 ng/mL (0.0-4.0) 05/27/21 18:31 CK-MB (CK-2) Rel Index 2.2 (0-4) 05/27/21 18:31 Troponin T < 0.010 ng/mL (0.00-0.029) 05/27/21 18:31 Total Protein 7.7 g/dL (6.3-8.2) 05/27/21 18:31 Albumin 4.1 g/dL (3.9-5) 05/27/21 18:31 Albumin/Globulin Ratio 1.1 % 05/27/21 18:31 - Imaging and Cardiology CT Scan - head: report reviewed Assessment and Plan VTE prophylaxis?: Chemical Plan of care discussed with patient/family: Yes - Patient Problems (1) TIA (transient ischemic attack) Current Visit: Yes Status: Acute Plan to address problem: Admit the patient to the medical telemetry. Aspirin 325 mg p.o. daily. Lipitor 40 mg p.o. daily. PT OT and speech evaluation. MRI of the brain . MRAof the brain and neck with and without contrast. Echocardiogram. Neurology evaluation (2) Fall Current Visit: Yes Status: Acute Plan to address problem: Fall precaution. Physical therapy, Occupational Therapy and speech evaluation (3) Diabetes Current Visit: Yes Status: Acute Plan to address problem: Accu-Chek every 6 hours with Humalog moderate dose coverage as. Diabetic education. Repeat BMP in the morning (4) Hypertension Current Visit: Yes Status: Acute Plan to address problem: Hydralazine 10 mg IV every 6 hours as needed. We continue the home medication (5) Difficulty swallowing Current Visit: No Status: Acute Plan to address problem: We already consult P physical therapy speech evaluation and Occupational Therapy. We will monitor the patient closely (6) DVT prophylaxis Current Visit: Yes Status: Acute Plan to address problem: Heparin 5000 units subcu every 8 hours for DVT prophylaxis. Pepcid 20 mg IV every 12 hours for GI prophylaxis. Patient is a full code
[2021-05-28] MEDS ORDERED: hydrALAZINE 20 MG/1 ML INJ IV PRN (01:04)
[2021-05-28] MEDS: IPRATROPIUM/ALBUTEROL SULFATE 3 ML AMPUL.NEB IH SCH ×2 (05:34→19:06)
[2021-05-28] MEDS: HEPARIN 5,000 UNIT/1 ML VIAL SUB-Q SCH ×2 (06:59→15:19)
[2021-05-28] MEDS: INSULIN LISPRO 100 UNIT/ML SUB-Q SCH ×3 (07:30→17:39)
--- NOTE | 2021-05-28 09:21 | Consultation ---
History of Present Illness Consult date: 05/28/21 Reason for Consult: left side weakness yesterday,HTN emergency History of present illness: [place] weak on the left side and fall History of present illness: 85-year-old Amharic male with history of diabetes and hypertension was brought to the emergency room because of left-sided weakness since yesterday. Patient was working in his yard yesterday and he felt weak on the left side and he fell and now he is complaining of headache, dizziness. Patient stated the symptoms started yesterday at 2 PM. He denied any speech issues. No visual changes. Patient stated that his blood sugar was more than 700 yesterday??. Patient denies any fever or chills recently. No bowel or bladder incontinence. CT brain is negative for acute finding. CT cervical spine is unremarkable. Chest x-ray with rib details showed no evidence of fracture. Labs reviewed and is unremarkable. Patient's symptoms most likely related to TIA since patient's symptoms completely resolved today Ct brain is unremarkable -BUn/Cr#27/1.7 -LDL is pending -Initial BP was 229/84 -A1c#6.1 -he is started on ASA 325 mg and Lipitor 40 mg -MRI brain is pending -need MRA brain and neck -echo is pending Past History Past Medical History: diabetes, hypertension Medications and Allergies Allergies Allergy/AdvReac Type Severity Reaction Status Date / Time No Known Allergies Allergy Verified 03/05/21 12:16 Home Medications Medication Instructions Recorded Confirmed Last Taken Type Amoxicillin 500 mg PO Q8H #30 capsule 03/14/18 Unknown Rx Losartan [Cozaar] 25 mg PO QDAY #30 tablet 05/26/19 Unknown Rx Review of Systems All systems: negative Constitutional: weakness, other Neurological: weakness Past History Past Medical History: diabetes, hypertension Medications and Allergies Allergies Allergy/AdvReac Type Severity Reaction Status Date / Time No Known Allergies Allergy Verified 05/28/21 12:27 Home Medications Medication Instructions Recorded Confirmed Last Taken Type Amoxicillin 500 mg PO Q8H #30 capsule 03/14/18 Unknown Rx Losartan [Cozaar] 25 mg PO QDAY #30 tablet 05/26/19 Unknown Rx Active Meds: Active Medications Acetaminophen (Acetaminophen 325 Mg Tab) 650 mg PO Q4H PRN PRN Reason: Pain MILD(1-3)/Fever >100.5/ANDINO Albuterol (Albuterol 2.5 Mg/3 Ml Nebu) 2.5 mg IH Q4HRT PRN PRN Reason: Shortness Of Breath Albuterol/Ipratropium (Ipratropium/Albuterol Sulfate 3 Ml Ampul.Neb) 1 ampul IH Q6HRT [facility] Last Admin: 05/28/21 05:34 Dose: 1 ampul Aspirin (Aspirin 325 Mg Tab) 325 mg PO QDAY [facility] Atorvastatin Calcium (Atorvastatin 40 Mg Tab) 40 mg PO QHS [facility] Dextrose (Dextrose 50% In Water (25gm) 50 Ml Syringe) 0 ml IV Q30MIN PRN; Protocol PRN Reason: Hypoglycemia Famotidine (Famotidine 20 Mg/2 Ml Inj) 10 mg IV BID [facility] Heparin Sodium (Porcine) (Heparin 5,000 Unit/1 Ml Vial) 5,000 unit SUB-Q Q8HR [facility] Last Admin: 05/28/21 06:59 Dose: 5,000 unit Hydromorphone HCl (Hydromorphone 1 Mg/1 Ml Inj) 0.5 mg IV Q3H PRN PRN Reason: Pain , Severe (7-10) Sodium Chloride (Nacl 0.9% 1000 Ml) 1,000 mls @ 100 mls/hr IV DIRECT [facility] Insulin Human Lispro (Insulin Lispro 100 Unit/Ml) 0 unit SUB-Q Q6HR [facility]; Protocol Labetalol HCl (Labetalol 20 Mg/4 Ml Inj) 10 mg IV Q6H PRN PRN Reason: Hypertension Morphine Sulfate (Morphine 2 Mg/1 Ml Inj) 2 mg IV Q4H PRN PRN Reason: Pain, Moderate (4-6) Ondansetron HCl (Ondansetron 4 Mg/2 Ml Inj) 4 mg IV Q8H PRN PRN Reason: Nausea And Vomiting Sodium Chloride (Sodium Chloride 0.9% 10 Ml Flush Syringe) 10 ml IV BID [facility] Sodium Chloride (Sodium Chloride 0.9% 10 Ml Flush Syringe) 10 ml IV PRN PRN PRN Reason: LINE FLUSH Physical Examination - Vital Signs Vital Signs: Vital Signs Pulse Resp BP Pulse Ox 77 18 190/51 98 05/27/21 16:59 05/27/21 16:59 05/27/21 16:59 05/27/21 16:59 - Constitutional General appearance: comfortable - EENT EENT: Present: PERRL, mucous membranes moist - Respiratory Respiratory: Present: lungs clear, rhonchi - Cardiovascular Cardiovascular: Present: regular rate, normal S1, normal S2 Extremities: Present: no peripheral edema bilatateraly, no clubbing, cyanosis - Gastrointestinal Gastrointestinal: Present: normoactive bowel sounds - Integumentary Integumentary: Present: normal - Neurologic Cranial nerve examination: PERRL, EOMI, intact Speech examination: intact Sensorimotor examination: intact Detailed motor examination: grossly full strength in - Level of Consciousness 1a. Level of Consciousness: alert/keenly responsive - LOC Questions 1b. LOC Questions: answers both correctly - LOC Command 1c. LOC Commands: performs tasks correctly - Best Gaze 2. Best Gaze: normal - Visual 3. Visual: no visual loss - Facial Palsy 4. Facial Palsy: normal symmetrical movement - Motor Arm 5a. Motor Arm Left: no drift 5b. Motor Arm Right: no drift - Motor Leg 6a. Motor Leg Left: no drift 6b. Motor Leg Right: no drift - Limb Ataxia 7. Limb Ataxia: absent - Sensory 8. Sensory: normal - Best Language 9. Best Language: no aphasia - Dysarthria 10. Dysarthria: normal - Extinction and Inattention 11. Extinction/Inattention: no abnormality (pt. does not speeck urdu his grand son intrepet the interview with pt. over the phone.) - Scoring Total Score: 0 Stroke Severity: No Stroke Symptoms Results - Laboratory Findings CBC and BMP: 05/27/21 18:31 05/28/21 10:57 Abnormal Lab Findings: Abnormal Labs 05/27/21 05/27/21 05/27/21 16:56 18:31 18:31 MCV 98 H MCH 33 H Lymph % (Auto) 10.1 L Lymph # (Auto) 0.7 L Seg Neutrophils % 78.7 H PT 12.0 L INR 0.80 L Sodium Chloride Carbon Dioxide BUN Creatinine Glucose POC Glucose 219 H 05/27/21 18:31 MCV MCH Lymph % (Auto) Lymph # (Auto) Seg Neutrophils % PT INR Sodium 131 L Chloride 96.7 L Carbon Dioxide 19 L BUN 28 H Creatinine 1.5 H Glucose 192 H POC Glucose Assessment and Plan Assessment and Plan VTE prophylaxis?: Chemical Plan of care discussed with patient/family: Yes - Patient Problems # possible TIA (transient ischemic attack) vs CVA -he is with sudden weakness and speech difficulty resolved today -NIH#0 -CT brain is unremarkable -not a candidate for Tpa -MRA brain and neck are pending -Echo is pending -LDL is pending -A1C#6.4 -started on ASA#325 mg and Lipitor #40 mg -PT/ST evaluate -seizure precaution -cardiac monitering --NSR # hypertensive emergency -presented with BP#229/84 -allow for permissive HTN<180/110 for 24hours then gradual control to 150/80 # Fall -related to weakness -No LOC -Pt/St evaluate -seizure precaution # Diabetes Accu-Chek every 6 hours with Humalog moderate dose coverage as. Diabetic education. Repeat BMP in the morning -A1C#6.4 # Difficulty swallowing We already consult P physical therapy speech evaluation and Occupational Therapy. We will monitor the patient closely # DVT prophylaxis Heparin 5000 units subcu every 8 hours for DVT prophylaxis. Pepcid 20 mg IV every 12 hours for GI prophylaxis. Patient is a full code will follow
[2021-05-28] MEDS ORDERED: SODIUM CHLORIDE 0.45% 1000 ML 1,000 ML IV SCH (10:00)
[2021-05-28] MEDS ORDERED: ASPIRIN 325 MG TAB PO SCH (10:00)
--- NOTE | 2021-05-28 10:14 | Electrocardiograph Report ---
[facility] Test Date: 2021-05-27 Test Time: 22:29:37 Pat Name: TEREZA SMITH Department: Room: [facility] Gender: M Case Reviewer: [id number] : 1935 Requested By: VINCENT LYNN Order Number: [id number] Reading MD: Stepan Mccall Measurements Intervals [place] Rate: 67 P: 82 KS: 246 QRS: 61 QRSD: 93 T: 69 QT: 408 QTc: 431 Interpretive Statements Sinus rhythm Prolonged KS interval Probable left atrial enlargement Baseline artifacts noted. Compared to ECG 03/05/2021 12:29:43 No significant change noted. Electronically Signed On 05-28-2021 10:13:46 EST by Stepan Mccall
[2021-05-28 11:43] LABS: Calcium 9.2 mg/dL (8.4-10.2)
[2021-05-28] MEDS: FAMOTIDINE 20 MG/2 ML INJ IV SCH (11:44)
--- NOTE | 2021-05-28 17:52 | Magnetic Resonance Report ---
NONENHANCED MR SCAN OF THE BRAIN: INDICATION / CLINICAL INFORMATION: stroke. TECHNIQUE: Multiplanar, multisequence MR images of the brain obtained. COMPARISON: CT scan of the head from yesterday FINDINGS: BRAIN / INTRACRANIAL CONTENTS: No acute ischemia, acute hemorrhage, mass effect, midline shift, or hy drocephalus. Shallow subdural hematoma along the left lateral convexity measuring only a few millime ters in thickness; no cerebral contusion; inferior anterior frontal lobes and anterior temporal lobes normal Brainstem and cerebellar hemispheres are normal; cortical sulci are normal for the age; few isolated white matter lesions probably due to chronic small vessel disease CRANIOCERVICAL JUNCTION: No significant abnormality. VASCULAR FLOW-VOIDS: No significant abnormality. ORBITS: No significant abnormality of visualized orbits. SINUSES / MASTOIDS: Mucosal thickening in some of the left the ethmoid air cells; left middle ear cav ity normal; no fluid level in the mastoid air cells ADDITIONAL FINDINGS: None. IMPRESSION: 1. No acute/subacute ischemia; no intracerebral hemorrhage; tiny subdural hematoma on the left side m easuring only a few millimeters MRA HEAD WITHOUT CONTRAST TECHNIQUE: Routine MRA of the head is performed. 3-D/MIP reformats postprocessed. CONTRAST: None. FINDINGS: Intracranial vertebral arteries: No significant abnormality. Basilar artery: No significant abnormality. Posterior cerebral arteries: No significant abnormality. Intracranial internal carotid arteries: No significant abnormality. Anterior cerebral arteries: No significant abnormality. Middle cerebral arteries: Right M1 segment is normal; on the left side, approximately 30% narrowing i n the proximal left M1 segment; branches of the middle cerebral artery in the sylvian fissure are nor mal Variants and anomalies:None Additional findings: Shallow acute/subacute subdural hematoma over the left cerebral hemisphere seen in the source images IMPRESSION: Approximately 30% narrowing of the proximal left middle cerebral artery Signer Name: Daniel Loredo MD Signed: 05/28/2021 5:48 PM Workstation Name: [email or web address]
--- NOTE | 2021-05-28 18:20 | Progress Note ---
Assessment and Plan Assessment and plan: 85-year-old Salvadorean male with history of diabetes and hypertension has been dizziness and some headaches with elevated BP and blood glucose. He felt dizzy and fell sustaining some minor abrasions at left elbow and left knee and presented to ED. Patient reports that his blood pressure has been elevated for and his PCP is trying to optimize the control. No history of cardiac disease or syncopal episodes. CT brain is negative for acute finding. CT cervical spine is unremarkable. Chest x-ray with rib details showed no evidence of fracture. Labs unremarkable. (1) rule out TIA (transient ischemic attack) Current Visit: Yes Status: Acute Plan to address problem: Neurological examination is normal. CT head negative. Aspirin 325 mg p.o. daily. Lipitor 40 mg p.o. daily. PT OT and speech evaluation. MRI of the brain . MRAof the brain and neck with and without contrast. Echocardiogram. Ne urology evaluation (2) Fall Current Visit: Yes Status: Acute Plan to address problem: Fall precaution. Physical therapy, Occupational Therapy and speech evaluation (3) Diabetes Current Visit: Yes Status: Acute Plan to address problem: Blood glucose of 700 yesterday at home. Current blood glucose is less than 200. Will obtain hemoglobin A1c. Accu-Chek every 6 hours with Humalog moderate dose coverage as. Diabetic education. Repeat BMP in the morning (4) Hypertension with history of poor control Current Visit: Yes Status: Acute Plan to address problem: Patient reports compliance with his meds. Continue home meds. Hydralazine 10 mg IV every 6 hours as needed. We continue the home medication (5) CAMILLA Current Visit: No Status: Acute Plan to address problem: Likely prerenal, will start IV fluids for hydration and monitor renal function. (6) DVT prophylaxis Current Visit: Yes Status: Acute Plan to address problem: Heparin 5000 units subcu every 8 hours for DVT prophylaxis. Pepcid 20 mg IV every 12 hours for GI prophylaxis. Patient is a full code Discussed with the patient, grandson and the nursing staff. History Interval history: Patient interviewed with the help of his grandson. Patient does including headaches, treatments, fever, chills, nausea or abdominal pains. Currently, BP and blood glucose not significantly elevated. Hospitalist Physical - Constitutional Vitals: Temp Pulse Resp BP Pulse Ox 97.5 F L 55 L 15 126/80 97 05/28/21 05:07 05/28/21 16:00 05/28/21 05:07 05/28/21 16:00 05/28/21 16:00 General appearance: Present: no acute distress, well-nourished - EENT Eyes: Present: PERRL, EOM intact ENT: hearing intact - Neck Neck: Present: supple - Respiratory Respiratory effort: normal Respiratory: bilateral: CTA - Cardiovascular Rhythm: regular - Extremities Extremities: No edema - Abdominal General gastrointestinal: soft, non-tender - Integumentary Integumentary: Present: rash (Minor abrasions around left elbow and left knee.) - Psychiatric Psychiatric: appropriate mood/affect - Neurologic Neurologic: no focal deficits, moves all extremities HEART Score - HEART Score Troponin: Troponin T < 0.010 ng/mL (0.00-0.029) 05/27/21 18:31 Results - Labs CBC & Chem 7: 05/29/21 06:54 05/28/21 10:57 Labs: Laboratory Last Values WBC 6.8 K/mm3 (4.5-11.0) 05/27/21 18:31 RBC 3.65 M/mm3 (3.65-5.03) 05/27/21 18:31 Hgb 12.0 gm/dl (11.8-15.2) 05/27/21 18:31 Hct 35.9 % (35.5-45.6) 05/27/21 18:31 MCV 98 fl (84-94) H 05/27/21 18:31 MCH 33 pg (28-32) H 05/27/21 18:31 MCHC 34 % (32-34) 05/27/21 18:31 RDW 13.3 % (13.2-15.2) 05/27/21 18:31 Plt Count 249 K/mm3 (140-440) 05/27/21 18:31 Lymph % (Auto) 10.1 % (13.4-35.0) L 05/27/21 18:31 [place] % (Auto) 6.9 % (0.0-7.3) 05/27/21 18:31 Eos % (Auto) 3.4 % (0.0-4.3) 05/27/21 18:31 Baso % (Auto) 0.9 % (0.0-1.8) 05/27/21 18:31 Lymph # (Auto) 0.7 K/mm3 (1.2-5.4) L 05/27/21 18:31 [place] # (Auto) 0.5 K/mm3 (0.0-0.8) 05/27/21 18:31 Eos # (Auto) 0.2 K/mm3 (0.0-0.4) 05/27/21 18:31 Baso # (Auto) 0.1 K/mm3 (0.0-0.1) 05/27/21 18:31 Seg Neutrophils % 78.7 % (40.0-70.0) H 05/27/21 18:31 Seg Neutrophils # 5.3 K/mm3 (1.8-7.7) 05/27/21 18:31 PT 12.0 Sec. (12.2-14.9) L 05/27/21 18:31 INR 0.80 (0.87-1.13) L 05/27/21 18:31 APTT 28.3 Sec. (24.2-36.6) 05/27/21 18:31 Thrombin Time 15.8 Sec. (15.1-19.6) 05/27/21 18:31 Sodium 137 mmol/L (137-145) 05/28/21 10:57 Potassium 4.6 mmol/L (3.6-5.0) 05/28/21 10:57 Chloride 102.4 mmol/L (98-107) 05/28/21 10:57 Carbon Dioxide 20 mmol/L (22-30) L 05/28/21 10:57 Anion Gap 19 mmol/L 05/28/21 10:57 BUN 27 mg/dL (9-20) H 05/28/21 10:57 Creatinine 1.7 mg/dL (0.8-1.3) H 05/28/21 10:57 Estimated GFR 38 ml/min 05/28/21 10:57 BUN/Creatinine Ratio 16 % 05/28/21 10:57 Glucose 144 mg/dL (75-100) H 05/28/21 10:57 POC Glucose 130 mg/dL (70-105) H 05/28/21 17:20 Hemoglobin A1c 6.4 % (4-6) H 05/28/21 10:57 Calcium 9.2 mg/dL (8.4-10.2) 05/28/21 10:57 Total Bilirubin 0.20 mg/dL (0.1-1.2) 05/27/21 18:31 AST 22 units/L (5-40) 05/27/21 18:31 ALT 29 units/L (7-56) 05/27/21 18:31 Alkaline Phosphatase 112 units/L (35-129) 05/27/21 18:31 Total Creatine Kinase 137 units/L (55-170) 05/27/21 18:31 CK-MB (CK-2) 3.1 ng/mL (0.0-4.0) 05/27/21 18: CK-MB (CK-2) Rel Index 2.2 (0-4) 05/27/21 18: Troponin T < 0.010 ng/mL (0.00-0.029) 05/27/21 18: Total Protein 7.7 g/dL (6.3-8.2) 05/27/21 18: Albumin 4.1 g/dL (3.9-5) 05/27/21 18:31 Albumin/Globulin Ratio 1.1 % 05/27/21 18:31 Active Medications - Current Medications Current Medications: Generic Name Dose Route Start Last Admin Trade Name Freq PRN Reason Stop Dose Admin Acetaminophen 650 mg 05/28/21 00:52 Acetaminophen 325 Mg Tab PO Q4H PRN Pain MILD(1-3)/Fever >100.5/ANDINO Albuterol 2.5 mg 05/28/21 00:52 Albuterol 2.5 Mg/3 Ml Nebu IH Q4HRT PRN Shortness Of Breath Albuterol/Ipratropium 1 ampul 05/28/21 02:00 05/28/21 05:34 Ipratropium/Albuterol Sulfate 3 Ml Ampul.Neb IH 1 ampul Q6HRT [facility] Administration Aspirin 325 mg 05/28/21 10:00 05/28/21 11:44 Aspirin 325 Mg Tab PO Not Given QDAY [facility] Atorvastatin Calcium 40 mg 05/28/21 22:00 Atorvastatin 40 Mg Tab PO QHS [facility] Dextrose 0 ml 05/28/21 00:52 Dextrose 50% In Water (25gm) 50 Ml Syringe IV Q30MIN PRN Hypoglycemia Protocol Famotidine 10 mg 05/28/21 10:00 05/28/21 11:44 Famotidine 20 Mg/2 Ml Inj IV Not Given BID [facility] Heparin Sodium (Porcine) 5,000 unit 05/28/21 06:00 05/28/21 15:19 Heparin 5,000 Unit/1 Ml Vial SUB-Q Not Given Q8HR [facility] Sodium Chloride 1,000 mls @ 75 mls/hr 05/28/21 10:00 Nacl 0.45% 1000 Ml IV DIRECT [facility] Insulin Human Lispro 0 unit 05/28/21 06:00 05/28/21 17:39 Insulin Lispro 100 Unit/Ml SUB-Q Not Given Q6HR [facility] Protocol Labetalol HCl 10 mg 05/28/21 01:07 Labetalol 20 Mg/4 Ml Inj IV Q6H PRN Hypertension Ondansetron HCl 4 mg 05/28/21 00:52 Ondansetron 4 Mg/2 Ml Inj IV Q8H PRN Nausea And Vomiting Sodium Chloride 10 ml 05/28/21 10:00 05/28/21 11:45 Sodium Chloride 0.9% 10 Ml Flush Syringe IV Not Given BID [facility] Sodium Chloride 10 ml 05/28/21 00:52 Sodium Chloride 0.9% 10 Ml Flush Syringe IV PRN PRN LINE FLUSH Nutrition/Malnutrition Assess - Dietary Evaluation Nutrition/Malnutrition Findings: Nutrition Notes Start: 05/28/21 10 :32 Freq: Status: Active Protocol: Document 05/28/21 10:32 JOSE (Rec: 05/28/21 10:37 JOSE [email or web address]) Nutrition Notes Need for Assessment generated from: MD Order,Education Initial or Follow up Brief Note Current Diet NPO (since 05/28 00:53). Height 5 ft Weight 45.359 kg [place] Body Weight (kg) 48.18 BMI 19.5 Weight change and time frame None reported at admission. Weight Status Underweight Subjective/Other Information RD consult for Nutrition Education. Pt still on Hold, not a candidate for Nutrition Education at the time, will assess feasibility on F/U. Percent of energy/protein needs met: Pt is currently on NPO. Current % PO Other Nutrition Intervention Follow-Up By: 06/04/21 Additional Comments Nutrition education will be provided on F/U if feasible. When pertinent, continue monitoring food tolerance, %PO intake of meals, and BM.
[2021-05-29] MEDS: FAMOTIDINE 20 MG/2 ML INJ IV SCH ×3 (02:03→22:08)
[2021-05-29] MEDS: HEPARIN 5,000 UNIT/1 ML VIAL SUB-Q SCH ×2 (02:03→06:41)
[2021-05-29] MEDS: INSULIN LISPRO 100 UNIT/ML SUB-Q SCH ×2 (02:04→11:07)
[2021-05-29] MEDS: IPRATROPIUM/ALBUTEROL SULFATE 3 ML AMPUL.NEB IH SCH (03:47)
[2021-05-29 07:01] LABS: Basophils # (Auto) 0.1 K/mm3 (0.0-0.1); Basophils % (Auto) 1.9 % (0.0-1.8); Eosinophils # (Auto) 0.7 K/mm3 (0.0-0.4); Eosinophils % (Auto) 11.2 % (0.0-4.3); Hematocrit 36.1 % (35.5-45.6); Hemoglobin 11.7 gm/dl (11.8-15.2); Lymphocytes # (Auto) 2.4 K/mm3 (1.2-5.4); Lymphocytes % (Auto) 38.1 % (13.4-35.0); Mean Corpuscular HGB Conc 32 % (32-34); Mean Corpuscular Volume 100 fl (84-94); Monocytes # (Auto) 0.5 K/mm3 (0.0-0.8); Monocytes % (Auto) 8.3 % (0.0-7.3); Platelet Count 274 K/mm3 (140-440); Red Blood Count 3.61 M/mm3 (3.65-5.03); Red Cell Distribution Width 13.7 % (13.2-15.2)
[2021-05-29 07:26] LABS: Calcium 9.4 mg/dL (8.4-10.2); Chol/HDL Ratio 2.66 %
[2021-05-29] MEDS ORDERED: ASPIRIN 325 MG TAB PO SCH (08:40)
[2021-05-29] MEDS ORDERED: ASPIRIN 81 MG TAB CHEW PO SCH (10:00)
--- NOTE | 2021-05-29 10:33 | Progress Note ---
Assessment and Plan Assessment and Plan VTE prophylaxis?: Chemical Plan of care discussed with patient/family: Yes - Patient Problems # possible TIA (transient ischemic attack) vs CVA -he is with sudden weakness and speech difficulty resolved today -NIH#0 -CT brain is unremarkable -not a candidate for Tpa -MRA brain is unremarkable -Echo is with Ef#60-65% -LDL is 105 -A1C#6.4 -started on ASA#325 mg and Lipitor #40 mg -PT/ST evaluate -seizure precaution -cardiac monitering --NSR -US acrotid is pending -Incidental finding of left sided SDH noted on MRI 1-2mm thick ,not seen on CT --- will decrese ASA to 81 mg - neurology follow up - # hypertensive emergency -presented with BP#229/84 -allow for permissive HTN<180/110 for 24hours then gradual control to 150/80 # Fall -related to weakness -No LOC -Pt/St evaluate -seizure precaution # Diabetes Accu-Chek every 6 hours with Humalog moderate dose coverage as. Diabetic education. Repeat BMP in the morning -A1C#6.4 # Difficulty swallowing We already consult P physical therapy speech evaluation and Occupational Therapy. We will monitor the patient closely # DVT prophylaxis Heparin 5000 units subcu every 8 hours for DVT prophylaxis. Pepcid 20 mg IV every 12 hours for GI prophylaxis. Patient is a full code will sign off D/W pt. and his grand son over the phone today Neurology follow up Subjective Date of service: 05/29/21 Principal diagnosis: right side weakness and fall Interval history: doing well no weakness or numbness no speech difficulty Objective - Vital Sign Vital Signs - 12hr 05/29/21 05/29/21 05/29/21 06:39 07:05 09:06 Temperature 98.1 F 97.5 F L Pulse Rate 65 72 62 Respiratory 16 16 Rate Blood Pressure 207/92 133/42 [Left] O2 Sat by Pulse 98 96 Oximetry - General Apperance Constitutional: uncomfortable - EENT EENT: PERRL, mucous membranes moist, mucous membranes dry - Respiratory Respiratory: chest non-tender, lungs clear - Cardiovascular Cardiovascular: regular rate, normal S1, normal S2 Extremities: no peripheral edema bilat, no clubbing, cyanosis - Gastrointestinal Gastrointestinal: normoactive bowel sounds - Integumentary Integumentary: normal - Neurologic Cranial nerve examination: PERRL, EOMI, intact Speech examination: intact Detailed motor examination: grossly full strength in - Laboratory Findings CBC and BMP: 05/29/21 06:54 05/29/21 04:00 Abnormal Lab Findings: Abnormal Labs 05/27/21 05/27/21 05/27/21 16:56 18:31 18:31 RBC Hgb MCV 98 H MCH 33 H Lymph % (Auto) 10.1 L [place] % (Auto) Eos % (Auto) Baso % (Auto) Lymph # (Auto) 0.7 L Eos # (Auto) Seg Neutrophils % 78.7 H PT 12.0 L INR 0.80 L Sodium Chloride Carbon Dioxide BUN Creatinine Glucose POC Glucose 219 H Hemoglobin A1c HDL Cholesterol 05/27/21 05/28/21 05/28/21 18:31 10:57 10:57 RBC Hgb MCV MCH Lymph % (Auto) [place] % (Auto) Eos % (Auto) Baso % (Auto) Lymph # (Auto) Eos # (Auto) Seg Neutrophils % PT INR Sodium 131 L Chloride 96.7 L Carbon Dioxide 19 L 20 L BUN 28 H 27 H Creatinine 1.5 H 1.7 H Glucose 192 H 144 H POC Glucose Hemoglobin A1c 6.4 H HDL Cholesterol 05/28/21 05/28/21 05/29/21 11:53 17:20 01:25 RBC Hgb MCV MCH Lymph % (Auto) [place] % (Auto) Eos % (Auto) Baso % (Auto) Lymph # (Auto) Eos # (Auto) Seg Neutrophils % PT INR Sodium Chloride Carbon Dioxide BUN Creatinine Glucose POC Glucose 129 H 130 H 111 H Hemoglobin A1c HDL Cholesterol 05/29/21 05/29/21 04:00 06:54 RBC 3.61 L Hgb 11.7 L MCV 100 H MCH Lymph % (Auto) 38.1 H [place] % (Auto) 8.3 H Eos % (Auto) 11.2 H Baso % (Auto) 1.9 H Lymph # (Auto) Eos # (Auto) 0.7 H Seg Neutrophils % PT INR Sodium 134 L Chloride Carbon Dioxide BUN 28 H Creatinine 1.6 H Glucose 110 H POC Glucose Hemoglobin A1c HDL Cholesterol 68 H
--- NOTE | 2021-05-29 11:38 | Vascular Lab Report ---
DUPLEX DOPPLER ULTRASOUND CAROTID, BILATERAL INDICATION / CLINICAL INFORMATION: cva. COMPARISON: None available. FINDINGS: RIGHT CAROTID: Mild calcified atherosclerotic plaque. - PLAQUE ESTIMATE (%): < 50% - CCA velocity: 115 cm/sec. - ICA peak systolic velocity: 113 cm/sec. - ICA/CCA PSV Ratio: Less than 2. Right Vertebral Artery: Antegrade flow. LEFT CAROTID: Mild to moderate calcified atherosclerotic plaque. - PLAQUE ESTIMATE (%): < 50% - CCA velocity: 98 cm/sec. - ICA peak systolic velocity: 104 cm/sec. - ICA/CCA PSV Ratio: Less than 2. Left Vertebral Artery: Antegrade flow. IMPRESSION: 1. Right Internal Carotid Artery: Less than 50% diameter stenosis. 2. Left Internal Carotid Artery: Less than 50% diameter stenosis. Velocity criteria are extrapolated from diameter data as defined by the Society of Radiologists in Ul trasound Consensus Conference, Radiology 2003; 229;340-346. NO STENOSIS (NORMAL) - Plaque = none; ICA PSV < 125 cm/sec; ICA/CCA PSV Ratio < 2.0 <50% STENOSIS - Plaque < 50%; ICA PSV < 125 cm/sec; ICA/CCA PSV Ratio < 2.0 50-69% STENOSIS - Plaque > 50%; ICA PSV = 125-230 cm/sec; ICA/CCA PSV Ratio = 2.0-4.0 >70% BUT <100% STENOSIS - Plaque > 50%; ICA PSV > 230 cm/sec; ICA/CCA PSV Ratio > 4.0 NEAR OCCLUSION - Plaque = visible lumen; ICA PSV = high/low/none; ICA/CCA PSV Ratio = variable TOTAL OCCLUSION - Plaque = no lumen; ICA PSV = none; ICA/CCA PSV Ratio = N/A Scribed by: Suzy Sheikh RDMS, RVT Scribed: 05/29/2021 10:19 AM I have reviewed the images, agree with this report, and edited this report as needed. Signer Name: Isiah Aecves MD Signed: 05/29/2021 11:33 AM Workstation Name: [id number]
--- NOTE | 2021-05-29 13:19 | Cat Scan Report ---
CT head/brain wo con INDICATION / CLINICAL INFORMATION: 85 years Male; Follow-up Subsural hematoma noted on MRI on 05/28. TECHNIQUE: Thin cut axial images obtained. Sagittal and coronal reconstructions performed. All CT scans at this location are performed using CT dose reduction for ALARA by means of automated exposure control. COMPARISON: CT-05/27/2021; MRI-05/28/2021 FINDINGS: Very small subdural collection on the left is nearly imperceptible by CT. Certainly, there is no detr imental change from prior exams. No focal mass, hydrocephalus, or acute, large infarct seen. Atherosclerotic disease is seen in the anterior and posterior circulation. There is opacification of the hypoplastic mastoid air cells on the left. IMPRESSION: 1. No detrimental change from prior exams appreciated. Signer Name: Johny Pascual MD, III Signed: 05/29/2021 1:15 PM Workstation Name: [id number]
[2021-05-29 15:44] LABS: Bilirubin,Urine NEG (Negative); Blood,Urine NEG (Negative); Color,Urine Yellow (Yellow); RBC,Urine < 1.0 /HPF (0.0-6.0); Urobilinogen,Urine < 2.0 mg/dL (<2.0)
[2021-05-29 16:15] LABS: Protein,Urine >500 mg/dL (Negative)
--- NOTE | 2021-05-29 16:56 | Ultrasound Report ---
Renal ultrasound INDICATION: Acute renal failure FINDINGS: The right kidney measures 9 cm in length and the left measures 12 cm in length. No hydronep hrosis. Small cystic lesions present within both kidneys. Both kidneys are mildly echogenic. Urinary bladder is fluid distended and the prostate appears mildly prominent IMPRESSION: Echogenic kidneys, as outlined above consistent with medical renal disease. No hydronephr osis. Other incidental findings as above. Signer Name: Lazaro Huntley MD Signed: 05/29/2021 4:52 PM Workstation Name: [id number]
--- NOTE | 2021-05-29 17:07 | Consultation ---
History of Present Illness - Reason for Consult Consult date: 05/29/21 acute renal failure, chronic renal failure - History of Present Illness The patient is an 85 YO Maldivian male with history of Diabetes, Hypertension and CKD who was brought to [facility] ED 05/27 due to left-sided weakness of 1 day duration. Patient was working in his yard and he felt weak on the left side and he fell. He also complain of headache and dizziness. Patient denied any speech issues, visual changes, fever, chills, bowel or bladder incontinence. Patient stated that his blood sugar was more than [address] brain was negative for acute finding. CT cervical spine was unremarkable. Chest x-ray with rib details showed no evidence of fracture. Patient's symptoms completely resolved within 24 hours. Patient was admitted with TIA and stroke work-up. Labs notable for Creat 1.6, BUN 30 and Sodium 132. Nephrology was consulted for further evaluation and treatment of CAMILLA. Past History Past Medical History: diabetes, hypertension, renal failure Medications and Allergies Allergies Allergy/AdvReac Type Severity Reaction Status Date / Time No Known Allergies Allergy Verified 05/28/21 12:27 Home Medications Medication Instructions Recorded Confirmed Last Taken Type Glimepiride [Amaryl] 1 mg PO QAM #30 05/30/21 Unknown Rx Hydralazine HCl 50 BID 05/30/21 Unknown History NIFEdipine XL [Procardia Xl] 90 mg PO QDAY #30 tablet 05/30/21 Unknown Rx Simvastatin 40 QHS 05/30/21 Unknown History Tamsulosin [Flomax] 0.4 mg PO QDAY #30 capsule 05/30/21 Unknown Rx cloNIDine 0.2 BID 05/30/21 Unknown History Active Meds: Active Medications Acetaminophen (Acetaminophen 325 Mg Tab) 650 mg PO Q4H PRN PRN Reason: Pain MILD(1-3)/Fever >100.5/ANDINO Albuterol (Albuterol 2.5 Mg/3 Ml Nebu) 2.5 mg IH Q4HRT PRN PRN Reason: Shortness Of Breath Albuterol/Ipratropium (Ipratropium/Albuterol Sulfate 3 Ml Ampul.Neb) 1 ampul IH Q6HRT [facility] Last Admin: 05/29/21 03:47 Dose: Not Given Atorvastatin Calcium (Atorvastatin 40 Mg Tab) 40 mg PO QHS [facility] Last Admin: 05/29/21 02:03 Dose: 40 mg Dextrose (Dextrose 50% In Water (25gm) 50 Ml Syringe) 0 ml IV Q30MIN PRN; Protocol PRN Reason: Hypoglycemia Famotidine (Famotidine 20 Mg/2 Ml Inj) 10 mg IV BID [facility] Last Admin: 05/29/21 14:21 Dose: 10 mg Sodium Chloride (Nacl 0.45% 1000 Ml) 1,000 mls @ 75 mls/hr IV DIRECT JONATAN Insulin Human Lispro (Insulin Lispro 100 Unit/Ml) 0 unit SUB-Q Q6HR [facility]; Protocol Last Admin: 05/29/21 11:07 Dose: Not Given Labetalol HCl (Labetalol 20 Mg/4 Ml Inj) 10 mg IV Q6H PRN PRN Reason: Hypertension Last Admin: 05/29/21 07:05 Dose: 10 mg Ondansetron HCl (Ondansetron 4 Mg/2 Ml Inj) 4 mg IV Q8H PRN PRN Reason: Nausea And Vomiting Sodium Chloride (Sodium Chloride 0.9% 10 Ml Flush Syringe) 10 ml IV BID [facility] Last Admin: 05/29/21 02:03 Dose: 10 ml Sodium Chloride (Sodium Chloride 0.9% 10 Ml Flush Syringe) 10 ml IV PRN PRN PRN Reason: LINE FLUSH Review of Systems All systems: negative Exam - Vital Signs Vital signs: Vital Signs Pulse Resp BP Pulse Ox 77 18 190/51 98 05/27/21 16:59 05/27/21 16:59 05/27/21 16:59 05/27/21 16:59 Results - Lab Results 05/29/21 06:54 05/30/21 04:47 Most recent lab results Calcium 9.4 mg/dL (8.4-10.2) 05/29/21 04:00 Assessment and Plan 1. Acute kidney injury: Likely vasomotor CAMILLA superimposed on CKD. Renal US negative for any hydro. Monitor renal function. Creatinine level fluctuates. Avoid nephrotoxic agents. Meds dosage based on GFR. 2. FEN: Hyponatremia, monitor. Monitor lytes and volume status. 3. Suspected TIA: CT head and MRI brain negative. Followed by Neuro. 4. H/o Fall. 5. Hypertension, uncontrolled: Monitor BP. Adjust meds as needed. 6. DM: Monitor Blood glucose. Subjective: Patient was seen and examined at the chairside. Examination: General appearance: well-developed, appears stated age, no distress HEENT: atraumatic Neck: trachea midline Respiratory: ctab, diminished breath sounds Heart: S1S2, no murmur Abdomen: soft, bowel sounds heard, NT Integumentary: no obvious rash noted Neurologic: alert, conversing, able to move extremities Ext: no edema noted
[2021-05-30] MEDS: IPRATROPIUM/ALBUTEROL SULFATE 3 ML AMPUL.NEB IH SCH ×4 (02:06→09:30)
[2021-05-30] MEDS: INSULIN LISPRO 100 UNIT/ML SUB-Q SCH ×4 (02:07→23:41)
[2021-05-30 06:20] LABS: Calcium 8.6 mg/dL (8.4-10.2)
--- NOTE | 2021-05-30 06:37 | Progress Note ---
Assessment and Plan Assessment and plan: 85-year-old Luxembourger male with history of CKD, diabetes and hypertension has been dizziness and some headaches with elevated BP and blood glucose. He felt dizzy and fell sustaining some minor abrasions at left elbow and left knee and presented to ED. Patient reports that his blood pressure has been elevated for and his PCP has been trying to optimize the control. No history of cardiac disease or syncopal episodes. Stroke work-up initiated and ED, CT brain is negative for acute finding. CT cervical spine is unremarkable. Chest x-ray with rib details showed no evidence of fracture. Labs unremarkable. (1) syncope/fall likely from a hypertensive encephalopathy Current Visit: Yes Status: Acute Plan to address problem: Patient fell dizzy and fell with elevated BP, likely from hypertensive enc ephalopathy. Patient clearly reports that he never had speech disturbance or focal extremity weakness. No reported loss of consciousness. Did not have any headaches. Neurological examination has been normal. CT head and CT neck showed no acute changes. MRI did not show any acute infarcts. MRA of brain showed a tiny left-sided subdural hematoma measuring only few millimeters. Echocardiogram-LV normal size, LVEF 60 to 65%, mild to moderate LVH. Mild biatrial enlargement. RV size and function normal. RVSP 45mmHg with mild TR. Acute CVA ruled out.'s symptomology does not support TIA. Patient is ambulating without difficulty. Patient is evaluated by neurology in consultation. (2) very small left subdural hematoma Current Visit: Yes Status: Acute Plan to address problem: Small subdural hematoma measuring only few mm at on left side detected on MRI on 05/[address]. Follow-up CT on 05/29 showed barely visible SDH on left. Aspirin and subcutaneous heparin discontinued. Neurochecks ordered for further monitoring. No new neurological symptoms/findings since. After medical therapy for tight BP control. (3) DM, type II, A1c 6.4 Current Visit: Yes Status: Acute Plan to address problem: Patient reports elevated blood glucose, about 700 on the day before admission. Possible glucometer malfunction. Current blood glucose ranging below 150. We will continue to monitor. Diabetes education ordered. (4) hypertensive urgency urinary retention hypertension with history of poor control Current Visit: Yes Status: Acute Plan to address problem: Patient reports compliance with his meds. Optimize BP control during the hospital stay. (5) urinary retention Patient reports having urinary frequency but not able to empty bladder. The symptoms appear to be chronic. Denies hematuria or dysuria. Renal ultrasound shows distended urinary bladder and a mildly enlarged prostate.. Patient bladder scan showed about 600 mL urine volume and Haines catheter drained about 1000 mL. Placed on Flomax. Patient will be followed by nephrology with Haines in place in a week after discharge. (6) CAMILLA on CKD 3, atrophic right kidney Current Visit: No Status: Acute Plan to address problem: Creatinine 1.5, 1.7 and 1.6 versus 1.3 on 03/05/2021. 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 Renal ultrasound shows medical renal disease, atrophic right kidney measuring 9 cm versus left kidney measuring 12 cm. Etiology of history multifactorial including diabetic/hypertensive nephropathy as well as obstructive uropathy. Hydrated with IV fluids. UA shows proteinuria as well as glycosuria. Will obtain renal vascular ultrasound to rule out renal artery stenosis. Consulted nephrology. (7) DVT prophylaxis Current Visit: Yes Status: Acute Plan to address problem: Heparin 5000 units subcu every 8 hours for DVT prophylaxis. Pepcid 20 mg IV every 12 hours for GI prophylaxis. Patient is a full code Discussed with the patient, grandson and the nursing staff. History Interval history: Patient denies any headaches or any new neurological symptoms. Denies scalp pain or swelling. No acute vision changes. No focal weakness in extremities. No speech disturbance. MRI/MRA of the brain performed on 05/28 showed a tiny subdural hematoma on the left measuring only few millimeters which is barely discernible on follow-up CT today, 05/29. Aspirin as well as subcu heparin discontinued and patient is monitored closely neurologically. Patient is complaining of urinary frequency, hesitancy and difficulty emptying bladder and the symptoms have been ongoing. Bedside bladder scan showed about 600 mL urine and able to 1000 mL drained with placement of Haines catheter. Creatinine cynthia ins elevated 1.6 compared with 1.3 on 06/05/2020. Renal ultrasound shows medical renal disease with a contracted the right kidney 9 cm versus left kidney 12 cm. Nephrology consulted. Patient denies fever, chills, hematuria or dysuria. BP has been intermittently spiking up. BG's ranging between 100 150. Hospitalist Physical - Constitutional Vitals: Temp Pulse Resp BP Pulse Ox 98.6 F 67 18 193/70 98 05/30/21 02:59 05/30/21 02:59 05/30/21 02:59 05/30/21 02:59 05/30/21 02:59 General appearance: Present: no acute distress, well-nourished - EENT Eyes: Present: PERRL, EOM intact (No scalp swelling or evidence of trauma.) ENT: hearing intact - Neck Neck: Present: supple - Respiratory Respiratory effort: normal Respiratory: bilateral: CTA - Cardiovascular Rhythm: regular - Extremities Extremities: No edema - Abdominal General gastrointestinal: soft, non-tender, normal bowel sounds - Integumentary Integumentary: Present: rash - Psychiatric Psychiatric: appropriate mood/affect - Neurologic Neurologic: no focal deficits, moves all extremities HEART Score - HEART Score Troponin: Troponin T < 0.010 ng/mL (0.00-0.029) 05/27/21 18:31 Results - Labs CBC & Chem 7: 05/29/21 06:54 05/30/21 04:47 Labs: Laboratory Last Values WBC 6.4 K/mm3 (4.5-11.0) 05/29/21 06:54 RBC 3.61 M/mm3 (3.65-5.03) L 05/29/21 06:54 Hgb 11.7 gm/dl (11.8-15.2) L 05/29/21 06:54 Hct 36.1 % (35.5-45.6) 05/29/21 06:54 MCV 100 fl (84-94) H 05/29/21 06:54 MCH 32 pg (28-32) 05/29/21 06:54 MCHC 32 % (32-34) 05/29/21 06:54 RDW 13.7 % (13.2-15.2) 05/29/21 06:54 Plt Count 274 K/mm3 (140-440) 05/29/21 06:54 Lymph % (Auto) 38.1 % (13.4-35.0) H 05/29/21 06:54 [place] % (Auto) 8.3 % (0.0-7.3) H 05/29/21 06:54 Eos % (Auto) 11.2 % (0.0-4.3) H 05/29/21 06:54 Baso % (Auto) 1.9 % (0.0-1.8) H 05/29/21 06:54 Lymph # (Auto) 2.4 K/mm3 (1.2-5.4) 05/29/21 06:54 [place] # (Auto) 0.5 K/mm3 (0.0-0.8) 05/29/21 06:54 Eos # (Auto) 0.7 K/mm3 (0.0-0.4) H 05/29/21 06:54 Baso # (Auto) 0.1 K/mm3 (0.0-0.1) 05/29/21 06:54 Seg Neutrophils % 40.5 % (40.0-70.0) 05/29/21 06:54 Seg Neutrophils # 2.6 K/mm3 (1.8-7.7) 05/29/21 06:54 PT 12.0 Sec. (12.2-14.9) L 05/27/21 18:31 INR 0.80 (0.87-1.13) L 05/27/21 18:31 APTT 28.3 Sec. (24.2-36.6) 05/27/21 18:31 Thrombin Time 15.8 Sec. (15.1-19.6) 05/27/21 18:31 Sodium 132 mmol/L (137-145) L 05/30/21 04:47 Potassium 4.5 mmol/L (3.6-5.0) 05/30/21 04:47 Chloride 99.5 mmol/L (98-107) 05/30/21 04:47 Carbon Dioxide 20 mmol/L (22-30) L 05/30/21 04:47 Anion Gap 17 mmol/L 05/30/21 04:47 BUN 30 mg/dL (9-20) H 05/30/21 04:47 Creatinine 1.6 mg/dL (0.8-1.3) H 05/30/21 04:47 Estimated GFR 41 ml/min 05/30/21 04:47 BUN/Creatinine Ratio 19 % 05/30/21 04:47 Glucose 96 mg/dL (75-100) 05/30/21 04:47 POC Glucose 137 mg/dL (70-105) H 05/29/21 10:57 Hemoglobin A1c 6.4 % (4-6) H 05/28/21 10:57 Calcium 8.6 mg/dL (8.4-10.2) 05/30/21 04:47 Total Bilirubin 0.20 mg/dL (0.1-1.2) 05/27/21 18:31 AST 22 units/L (5-40) 05/27/21 18:31 ALT 29 units/L (7-56) 05/27/21 18:31 Alkaline Phosphatase 112 units/L (35-129) 05/27/21 18:31 Total Creatine Kinase 137 units/L (55-170) 05/27/21 18:31 CK-MB (CK-2) 3.1 ng/mL (0.0-4.0) 05/27/21 18: CK-MB (CK-2) Rel Index 2.2 (0-4) 05/27/21 18: Troponin T < 0.010 ng/mL (0.00-0.029) 05/27/21 18:31 Total Protein 7.7 g/dL (6.3-8.2) 05/27/21 18:31 Albumin 4.1 g/dL (3.9-5) 05/27/21 18:31 Albumin/Globulin Ratio 1.1 % 05/27/21 18:31 Triglycerides 97 mg/dL (2-149) 05/29/21 04:00 Cholesterol 181 mg/dL (50-199) 05/29/21 04:00 LDL Cholesterol Direct 105 mg/dL (50-130) 05/29/21 04:00 HDL Cholesterol 68 mg/dL (40-59) H 05/29/21 04:00 Cholesterol/HDL Ratio 2.66 % 05/29/21 04:00 Urine Color Yellow (Yellow) 05/29/21 Unknown Urine Turbidity Clear (Clear) 05/29/21 Unknown Urine pH 5.0 (5.0-7.0) 05/29/21 Unknown Ur Specific [place] 1.008 (1.003-1.030) 05/29/21 Unknown Urine Protein >500 mg/dL (Negative) 05/29/21 Unknown Urine Glucose (UA) >=500 mg/dL (Negative) 05/29/21 Unknown Urine Ketones Neg mg/dL (Negative) 05/29/21 Unknown Urine Blood Neg (Negative) 05/29/21 Unknown Urine Nitrite Neg (Negative) 05/29/21 Unknown Urine Bilirubin Neg (Negative) 05/29/21 Unknown Urine Urobilinogen < 2.0 mg/dL (<2.0) 05/29/21 Unknown Ur Leukocyte Esterase Neg (Negative) 05/29/21 Unknown Urine WBC (Auto) 1.0 /HPF (0.0-6.0) 05/29/21 Unknown Urine RBC (Auto) < 1.0 /HPF (0.0-6.0) 05/29/21 Unknown U Epithel Cells (Auto) < 1.0 /HPF (0-13.0) 05/29/21 Unknown Active Medications - Current Medications Current Medications: Generic Name Dose Route Start Last Admin Trade Name Freq PRN Reason Stop Dose Admin Acetaminophen 650 mg 05/28/21 00:52 Acetaminophen 325 Mg Tab PO Q4H PRN Pain MILD(1-3)/Fever >100.5/ANDINO Albuterol 2.5 mg 05/28/21 00:52 Albuterol 2.5 Mg/3 Ml Nebu IH Q4HRT PRN Shortness Of Breath Albuterol/Ipratropium 1 ampul 05/28/21 02:00 05/30/21 02:06 Ipratropium/Albuterol Sulfate 3 Ml Ampul.Neb IH Not Given Q6HRT JONATAN Atorvastatin Calcium 40 mg 05/28/21 22:00 05/29/21 22:05 Atorvastatin 40 Mg Tab PO 40 mg QHS JONATAN Administration Dextrose 0 ml 05/28/21 00:52 Dextrose 50% In Water (25gm) 50 Ml Syringe IV Q30MIN PRN Hypoglycemia Protocol Famotidine 10 mg 05/28/21 10:00 05/29/21 22:08 Famotidine 20 Mg/2 Ml Inj IV Not Given BID JONATAN Sodium Chloride 1,000 mls @ 75 mls/hr 05/28/21 10:00 Nacl 0.45% 1000 Ml IV DIRECT [facility] Insulin Human Lispro 0 unit 05/28/21 06:00 05/30/21 02:14 Insulin Lispro 100 Unit/Ml SUB-Q Not Given Q6HR [facility] Protocol Labetalol HCl 10 mg 05/28/21 01:07 05/29/21 07:05 Labetalol 20 Mg/4 Ml Inj IV 10 mg Q6H PRN Administration Hypertension Ondansetron HCl 4 mg 05/28/21 00:52 Ondansetron 4 Mg/2 Ml Inj IV Q8H PRN Nausea And Vomiting Sodium Chloride 10 ml 05/28/21 10:00 05/30/21 02:06 Sodium Chloride 0.9% 10 Ml Flush Syringe IV Not Given BID JONATAN Sodium Chloride 10 ml 05/28/21 00:52 Sodium Chloride 0.9% 10 Ml Flush Syringe IV PRN PRN LINE FLUSH Tamsulosin HCl 0.4 mg 05/30/21 10:00 Tamsulosin 0.4 Mg Cap PO QDAY JONATAN Nutrition/Malnutrition Assess - Dietary Evaluation Nutrition/Malnutrition Findings: Nutrition Notes Start: 05/28/21 10:32 Freq: Status: Active Protocol: Document 05/28/21 10:32 JOSE (Rec: 05/28/21 10:37 JOSE [id number]) Nutrition Notes Need for Assessment generated from: MD Order,Education Initial or Follow up Brief Note Current Diet NPO (since 05/28 00:53). Height 5 ft Weight 45.359 kg [place] Body Weight (kg) 48.18 BMI 19.5 Weight change and time frame None reported at admission. Weight Status Underweight Subjective/Other Information RD consult for Nutrition Education. Pt still on Hold, not a candidate for Nutrition Education at the time, will assess feasibility on F/U. Percent of energy/protein needs met: Pt is currently on NPO. Current % PO Other Nutrition Intervention Follow-Up By: 06/04/21 Additional Comments Nutrition education will be provided on F/U if feasible. When pertinent, continue monitoring food tolerance, %PO intake of meals, and BM.
--- NOTE | 2021-05-30 11:44 | Progress Note ---
Assessment and Plan 1. Acute kidney injury: Likely vasomotor CAMILLA superimposed on CKD. Renal US negative for any hydro. Monitor renal function. Creatinine leveled off. Avoid nephrotoxic agents. Meds dosage based on GFR. 2. FEN: Hyponatremia, monitor. On 05/18 NS, will stop IV fluids. Monitor lytes and volume status. 3. Suspected TIA: CT head and MRI brain negative. Followed by Neuro. 4. H/o Fall. 5. Hypertension, uncontrolled: Monitor BP. Stop IV fluids. Adjust meds as needed. 6. DM: Monitor Blood glucose. Spoke with his Grandson over the phone. Subjective: Patient was seen and examined at the bedside. RN at the bedside. Examination: General appearance: well-developed, appears stated age, no distress HEENT: atraumatic Neck: trachea midline Respiratory: ctab Heart: S1S2, regular, no murmur Abdomen: soft, bowel sounds heard, NT Integumentary: no obvious rash noted Neurologic: alert, conversing, able to move extremities Ext: no edema noted Subjective Date of service: 05/30/21 Principal diagnosis: right side weakness and fall Objective - Vital Signs Vital signs: Vital Signs - 12hr 05/30/21 05/30/21 05/30/21 01:57 02:05 02:59 Temperature 98.3 F 98.6 F Pulse Rate 62 65 67 Respiratory 16 18 Rate Blood Pressure 155/49 193/70 Blood Pressure 155/49 [Left] O2 Sat by Pulse 95 96 98 Oximetry 05/30/21 05/30/21 06:15 09:27 Temperature Pulse Rate Respiratory Rate Blood Pressure Blood Pressure [Left] O2 Sat by Pulse 98 97 Oximetry - Lab 05/29/21 06:54 05/30/21 04:47 Most recent lab results Calcium 8.6 mg/dL (8.4-10.2) 05/30/21 04:47 Medications & Allergies - Medications Allergies/Adverse Reactions: Allergies No Known Allergies Allergy (Verified 05/28/21 12:27) Home Medications: Home Medications Medication Instructions Recorded Confirmed Last Taken Type Glimepiride [Amaryl] 1 mg PO QAM #30 05/30/21 Unknown Rx Hydralazine HCl 50 BID 05/30/21 Unknown History NIFEdipine XL [Procardia Xl] 90 mg PO QDAY #30 tablet 05/30/21 Unknown Rx Simvastatin 40 QHS 05/30/21 Unknown History Tamsulosin [Flomax] 0.4 mg PO QDAY #30 capsule 05/30/21 Unknown Rx cloNIDine 0.2 BID 05/30/21 Unknown History Active Medications: Generic Name Dose Route Start Last Admin Trade Name Freq PRN Reason Stop Dose Admin Acetaminophen 650 mg 05/28/21 00:52 Acetaminophen 325 Mg Tab PO Q4H PRN Pain MILD(1-3)/Fever >100.5/ANDINO Albuterol 2.5 mg 05/28/21 00:52 Albuterol 2.5 Mg/3 Ml Nebu IH Q4HRT PRN Shortness Of Breath Atorvastatin Calcium 40 mg 05/28/21 22:00 05/29/21 22:05 Atorvastatin 40 Mg Tab PO 40 mg QHS JONATAN Administration Dextrose 0 ml 05/28/21 00:52 Dextrose 50% In Water (25gm) 50 Ml Syringe IV Q30MIN PRN Hypoglycemia Protocol Famotidine 10 mg 05/28/21 10:00 05/29/21 22:08 Famotidine 20 Mg/2 Ml Inj IV Not Given BID [facility] Hydralazine HCl 25 mg 05/30/21 10:00 Hydralazine 25 Mg Tab PO Q8HR [facility] Sodium Chloride 1,000 mls @ 75 mls/hr 05/28/21 10:00 Nacl 0.45% 1000 Ml IV DIRECT [facility] Insulin Human Lispro 0 unit 05/28/21 06:00 05/30/21 02:14 Insulin Lispro 100 Unit/Ml SUB-Q Not Given Q6HR [facility] Protocol Labetalol HCl 10 mg 05/28/21 01:07 05/29/21 07:05 Labetalol 20 Mg/4 Ml Inj IV 10 mg Q6H PRN Administration Hypertension Nifedipine 60 mg 05/30/21 10:00 Nifedipine Xl 60 Mg Tab PO QDAY [facility] Ondansetron HCl 4 mg 05/28/21 00:52 Ondansetron 4 Mg/2 Ml Inj IV Q8H PRN Nausea And Vomiting Sodium Chloride 10 ml 05/28/21 10:00 05/30/21 02:06 Sodium Chloride 0.9% 10 Ml Flush Syringe IV Not Given BID JONATAN Sodium Chloride 10 ml 05/28/21 00:52 Sodium Chloride 0.9% 10 Ml Flush Syringe IV PRN PRN LINE FLUSH Tamsulosin HCl 0.4 mg 05/30/21 10:00 Tamsulosin 0.4 Mg Cap PO QDAY JONATAN
[2021-05-30] MEDS: TAMSULOSIN 0.4 MG CAP PO SCH (11:51)
[2021-05-30] MEDS: FAMOTIDINE 20 MG/2 ML INJ IV SCH (11:51)
[2021-05-30] MEDS: hydrALAZINE 25 MG TAB PO SCH ×3 (11:52→21:44)
[2021-05-30] MEDS: NIFEdipine XL 60 MG TAB PO SCH (11:53)
--- NOTE | 2021-05-30 12:03 | Progress Note ---
Assessment and Plan Assessment and Plan VTE prophylaxis?: Chemical Plan of care discussed with patient/family: Yes - Patient Problems # possible TIA (transient ischemic attack) vs CVA -he is with sudden weakness and speech difficulty resolved today -NIH#0 -CT brain is unremarkable -not a candidate for Tpa -MRA brain is unremarkable -Echo is with Ef#60-65% -LDL is 105 -A1C#6.4 - ASA#81 mg and Lipitor #40 mg -PT/ST evaluate -seizure precaution -cardiac monitering --NSR -US acrotid is unremarkable -Incidental finding of left sided SDH noted on MRI 1-2mm thick ,not seen on CT --- will decrese ASA to 81 mg - neurology follow up - comply with medication # hypertensive emergency -presented with BP#229/84 -allow for permissive HTN<180/110 for 24hours then gradual control to 150/80 # Fall -related to weakness -No LOC -Pt/St evaluate -seizure precaution # Diabetes Accu-Chek every 6 hours with Humalog moderate dose coverage as. Diabetic education. Repeat BMP in the morning -A1C#6.4 # Difficulty swallowing We already consult P physical therapy speech evaluation and Occupational Therapy. We will monitor the patient closely # DVT prophylaxis Heparin 5000 units subcu every 8 hours for DVT prophylaxis. Pepcid 20 mg IV every 12 hours for GI prophylaxis. Patient is a full code will sign off D/W pt. and his grand son neurology follow up Subjective Date of service: 05/30/21 Principal diagnosis: right side weakness and fall Interval history: doing well no weakness or numbness no speech difficulty did not sleep well yesterday tired wants to go home had US renal today on ASA 81 mg and Lipitor 40 mg US carotid is <50% stenosis Bilateral Objective - Vital Sign Vital Signs - 12hr 05/30/21 05/30/21 05/30/21 01:57 02:05 02:59 Temperature 98.3 F 98.6 F Pulse Rate 62 65 67 Respiratory 16 18 Rate Blood Pressure 155/49 193/70 Blood Pressure 155/49 [Left] O2 Sat by Pulse 95 96 98 Oximetry 05/30/21 05/30/21 05/30/21 06:15 09:27 09:39 Temperature 97.8 F Pulse Rate 78 Respiratory 20 Rate Blood Pressure 179/60 Blood Pressure [Left] O2 Sat by Pulse 98 97 96 Oximetry 05/30/21 11:52 Temperature Pulse Rate 78 Respiratory Rate Blood Pressure 179/60 Blood Pressure [Left] O2 Sat by Pulse Oximetry - General Apperance Constitutional: uncomfortable - EENT EENT: PERRL, mucous membranes moist - Respiratory Respiratory: lungs clear, rhonchi - Cardiovascular Cardiovascular: regular rate, normal S1, normal S2 Extremities: no peripheral edema bilat, no clubbing, cyanosis - Gastrointestinal Gastrointestinal: normoactive bowel sounds, absent bowel sounds - Integumentary Integumentary: normal - Neurologic Cranial nerve examination: anosmic, PERRL, EOMI Speech examination: intact Detailed motor examination: grossly full strength in - Laboratory Findings CBC and BMP: 05/29/21 06:54 05/30/21 04:47 Abnormal Lab Findings: Abnormal Labs 05/27/21 05/27/21 05/27/21 16:56 18:31 18:31 RBC Hgb MCV 98 H MCH 33 H Lymph % (Auto) 10.1 L Owsley % (Auto) Eos % (Auto) Baso % (Auto) Lymph # (Auto) 0.7 L Eos # (Auto) Seg Neutrophils % 78.7 H PT 12.0 L INR 0.80 L Sodium Chloride Carbon Dioxide BUN Creatinine Glucose POC Glucose 219 H Hemoglobin A1c HDL Cholesterol 05/27/21 05/28/21 05/28/21 18:31 10:57 10:57 RBC Hgb MCV MCH Lymph % (Auto) [place]wsley % (Auto) Eos % (Auto) Baso % (Auto) Lymph # (Auto) Eos # (Auto) Seg Neutrophils % PT INR Sodium 131 L Chloride 96.7 L Carbon Dioxide 19 L 20 L BUN 28 H 27 H Creatinine 1.5 H 1.7 H Glucose 192 H 144 H POC Glucose Hemoglobin A1c 6.4 H HDL Cholesterol 05/28/21 05/28/21 05/29/21 11:53 17:20 01:25 RBC Hgb MCV MCH Lymph % (Auto) [place]wsley % (Auto) Eos % (Auto) Baso % (Auto) Lymph # (Auto) Eos # (Auto) Seg Neutrophils % PT INR Sodium Chloride Carbon Dioxide BUN Creatinine Glucose POC Glucose 129 H 130 H 111 H Hemoglobin A1c HDL Cholesterol 05/29/21 05/29/21 05/29/21 04:00 06:54 10:57 RBC 3.61 L Hgb 11.7 L MCV 100 H MCH Lymph % (Auto) 38.1 H Ows[place] % (Auto) 8.3 H Eos % (Auto) 11.2 H Baso % (Auto) 1.9 H Lymph # (Auto) Eos # (Auto) 0.7 H Seg Neutrophils % PT INR Sodium 134 L Chloride Carbon Dioxide BUN 28 H Creatinine 1.6 H Glucose 110 H POC Glucose 137 H Hemoglobin A1c HDL Cholesterol 68 H 05/30/21 05/30/21 04:47 06:33 RBC Hgb MCV MCH Lymph % (Auto) [place]wsley % (Auto) Eos % (Auto) Baso % (Auto) Lymph # (Auto) Eos # (Auto) Seg Neutrophils % PT INR Sodium 132 L Chloride Carbon Dioxide 20 L BUN 30 H Creatinine 1.6 H Glucose POC Glucose 127 H Hemoglobin A1c HDL Cholesterol
--- NOTE | 2021-05-30 12:43 | Vascular Lab Report ---
ULTRASOUND RENAL ARTERY DUPLEX IMAGING INDICATION / CLINICAL INFORMATION: Atrophic right kidney , r/o renal artery stenosis. COMPARISON: Renal ultrasound 05/29/2021. FINDINGS: RIGHT KIDNEY: Size = 9.7 cm. - Echogenicity: Mildly increased. - Cortical thickness: Mild thinning. - Hydronephrosis: None. - Cyst / Mass: Small simple appearing cysts. - Stones: None seen.. - Renal resistive indices (RI): 0.7, 0.7, 0.7 (Normal < 0.70) - Renal/aortic ratio (RAR): 0.7 (Normal < 3.5) LEFT KIDNEY: Size = 11.3 cm. - Echogenicity: Mildly increased. - Cortical thickness: Normal. - Hydronephrosis: None. - Cyst / Mass: Small simple appearing cysts. - Stones: None seen.. - Renal resistive indices (RI): 0.8, 0.9, 0.7 (Normal < 0.70) - Renal/aortic ratio (RAR): 0.8 (Normal < 3.5) URINARY BLADDER: No significant abnormality. FREE FLUID: None. ADDITIONAL FINDINGS: Elevated velocities within the proximal celiac axis and proximal superior mesent vinicio artery. IMPRESSION 1. Findings consistent with medical renal disease, similar to previous exam. 2. Mildly elevated left resistive indices. No sonographic evidence for renal artery stenosis. 3. Elevated velocities within the proximal celiac axis and proximal superior mesenteric artery. Promi nent atherosclerotic disease of the abdominal aorta. Scribed by: Suzy Sheikh RDMS, RVT Scribed: 05/30/2021 11:03 AM I have reviewed the images, agree with this report, and edited this report as needed. Signer Name: Lazaro Huntley MD Signed: 05/30/2021 12:39 PM Workstation Name: [email or web address]
--- NOTE | 2021-05-30 19:05 | Discharge Summary ---
<TORSTEN QUISPE R - Last Filed: 05/30/21 19:09> Providers - Providers Date of Admission: 05/27/21 22:42 Attending physician: LETTY QUISPE MD 05/28/21 00:52 Consult to Dietitian/Nutrition [CONS] Routine Physician Instructions: Reason For Exam: Reason for Consult: Diet education Consult to Physician [CONS] Routine Comment: Consulting Provider: DWAYNE LEZAMA Physician Instructions: Reason For Exam: cva Occupational Therapy Evaluate and Treat [CONS] Routine Comment: Reason For Exam: Neuro deficits Physical Therapy Evaluation and Treat [CONS] Routine Comment: Reason For Exam: Neuro deficits 05/29/21 12:02 Consult to Physician [CONS] Routine Comment: Consulting Provider: CHANI KING Physician Instructions: Reason For Exam: camilla Primary care physician: [employer]ER Hospitalization Condition: Stable Hospital course: Discharge disposition: Neurological examination remained normal since admitted. He has been ambulatory and asymptomatic. Small subdural hematoma was asymptomatic. No headache other scalp contusion. Patient did have significant urinary retention but significantly improved after starting Flomax. Postvoid urine volume by straight catheter just before discharge was 300 mL. Patient will continue Flomax and be followed by urology in 2 weeks. Creatinine more or less remained stable since admitted. Right kidney is atrophic but no significant findings suggestive of renal artery stenosis by ultrasound vascular study. Urinalysis did show proteinuria as well as glycosuria. Hemoglobin A1c was only 6.4. Discontinue metformin and instead of the prescribed Amaryl 1 mg every morning. Added nifedipine 90 mg daily for better blood pressure control. He will continue hydralazine and clonidine for now. He will see PCP in 1 week and nephrology in 2 weeks for optimal control of blood pressure as well as glucose levels. Is advised to avoid aspirin due to subdural hematoma. He will also avoid NSAIDs due to CKD. Disposition: HOME / SELF CARE / HOMELESS Final Discharge Diagnosis (Prints w/discharge instructions): Syncope and fall likely related to hypertensive encephalopathy. Tiny subdural hematoma, asymptomatic. CAMILLA versus CKD stage III. Severe hypertension likely renovascular. Right kidney atrophic but renal vasculature ultrasound did not indicate renal artery stenosis. Diabetes mellitus. Urinary retention with mild prostatic enlargement on renal ultrasound Exam - Constitutional Vitals: Temp Pulse Resp BP Pulse Ox 97.8 F 78 20 179/60 96 05/30/21 09:39 05/30/21 11:52 05/30/21 09:39 05/30/21 11:52 05/30/21 09:39 General appearance: Present: no acute distress - EENT Eyes: Present: PERRL, EOM intact ENT: hearing intact, clear oral mucosa - Neck Neck: Present: supple - Respiratory Respiratory effort: normal Respiratory: bilateral: CTA - Cardiovascular Rhythm: regular - Extremities Extremities: No edema - Abdominal General gastrointestinal: Present: soft, non-tender - Integumentary Integumentary: Absent: rash - Musculoskeletal Musculoskeletal: strength equal bilaterally - Psychiatric Psychiatric: appropriate mood/affect - Neurologic Neurologic: no focal deficits, moves all extremities Plan Activity: advance as tolerated Diet: low fat, low cholesterol, low salt, diabetic (1800 cals) Additional Instructions: Keep your blood sugar and blood pressure well controlled. See your family doctor in 1 week for follow-up. See urologist, Dr. Obando in 2 weeks for follow-up. See landcare officer Dr. King in 2 weeks for follow-up. Do not take aspirin, Advil, Motrin, Aleve. Follow up with: PRIMARY CARE, [Primary Care Provider] - 3-5 Days CHANI KING MD [Staff Physician] - 7 Days JUN OBANDO MD [Staff Physician] - 14 Days Prescriptions: Glimepiride [Amaryl] 1 mg PO QAM #30 Tamsulosin [Flomax] 0.4 mg PO QDAY #30 capsule NIFEdipine XL [Procardia Xl] 90 mg PO QDAY #30 tablet <DOREEN SULLIVAN - Last Filed: 05/31/21 14:30> Providers - Providers Date of Admission: 05/27/21 22:42 Attending physician: DOREEN SULLIVAN 05/28/21 00:52 Consult to Dietitian/Nutrition [CONS] Routine Physician Instructions: Reason For Exam: Reason for Consult: Diet education Consult to Physician [CONS] Routine Comment: Consulting Provider: DWAYNE LEZAMA Physician Instructions: Reason For Exam: cva Occupational Therapy Evaluate and Treat [CONS] Routine Comment: Reason For Exam: Neuro deficits Physical Therapy Evaluation and Treat [CONS] Routine Comment: Reason For Exam: Neuro deficits 05/29/21 12:02 Consult to Physician [CONS] Routine Comment: Consulting Provider: SESHAN,RAJINIKANT Physician Instructions: Reason For Exam: camilla Primary care physician: [employer]ER Exam - Constitutional Vitals: Temp Pulse Resp BP Pulse Ox 98.0 F 75 18 219/70 92 05/31/21 08:17 05/31/21 12:08 05/31/21 11:39 05/31/21 12:08 05/31/21 12:08
[2021-05-30] MEDS: FAMOTIDINE 10 MG TAB PO SCH (21:44)
[2021-05-31] MEDS: hydrALAZINE 25 MG TAB PO SCH (05:11)
[2021-05-31] MEDS: INSULIN LISPRO 100 UNIT/ML SUB-Q SCH ×2 (05:12→12:01)
[2021-05-31 06:29] LABS: Calcium 8.9 mg/dL (8.4-10.2)
--- NOTE | 2021-05-31 07:17 | Event Note ---
Date: 05/30/21 Progress note: Neurological examination remained normal since admitted. He has been ambulatory and asymptomatic. Small subdural hematoma was asymptomatic. No headache other scalp contusion. Patient did have significant urinary retention but significantly improved after starting Flomax. Postvoid urine volume by straight catheter just before discharge was 300 mL. Patient will continue Flomax and be followed by urology in 2 weeks. Creatinine more or less remained stable since admitted. Right kidney is atrophic but no significant findings suggestive of renal artery stenosis by ultrasound vascular study. Urinalysis did show proteinuria as well as glycosuria. Hemoglobin A1c was only 6.4. Discontinue metformin and instead of the prescribed Amaryl 1 mg every morning. Added nifedipine 90 mg daily for better blood pressure control. He will continue hydralazine and clonidine for now. He will see PCP in 1 week and nephrology in 2 weeks for optimal control of blood pressure as well as glucose levels. Is advised to avoid aspirin due to subdural hematoma. He will also avoid NSAIDs due to CKD. Patient was discharged pending pickle pumper the family. Discussed with the nephrology who agreed with the discharging patient for outpatient follow-up. Discussed with the nursing staff.
[2021-05-31] MEDS: FAMOTIDINE 10 MG TAB PO SCH (09:38)
[2021-05-31] MEDS: TAMSULOSIN 0.4 MG CAP PO SCH (09:38)
[2021-05-31] MEDS: NIFEdipine XL 60 MG TAB PO SCH (09:38)
[2021-05-31] MEDS ORDERED: hydrALAZINE 20 MG/1 ML INJ IV ONE (12:13)
[2021-05-31] MEDS ORDERED: cloNIDine 0.1 MG TAB PO ONE (13:00)
--- NOTE | 2021-05-31 13:15 | Progress Note ---
Assessment and Plan 1. Acute kidney injury: Likely vasomotor CAMILLA superimposed on CKD. Renal US negative for any hydro. Monitor renal function. Creatinine leveled off. Avoid nephrotoxic agents. Meds dosage based on GFR. 2. FEN: Hyponatremia, improved. Monitor lytes and volume status. 3. Suspected TIA: CT head and MRI brain negative. Followed by Neuro. 4. H/o Fall. 5. Hypertension, uncontrolled: Monitor BP. Adjust meds as needed. 6. DM: Monitor Blood glucose. Subjective: Patient was seen and examined at the bedside. Examination: General appearance: well-developed, appears stated age, no distress HEENT: atraumatic Neck: trachea midline Respiratory: ctab Heart: S1S2, regular, no murmur Abdomen: soft, bowel sounds heard, NT Integumentary: no obvious rash noted Neurologic: alert, conversing, able to move extremities Ext: no edema noted Subjective Date of service: 05/31/21 Principal diagnosis: right side weakness and fall Objective - Vital Signs Vital signs: Vital Signs - 12hr 05/31/21 05/31/21 05/31/21 02:00 03:42 07:40 Temperature 97.4 F L Pulse Rate 66 65 Pulse Rate [ From Monitor] Respiratory 16 Rate Blood Pressure 184/64 O2 Sat by Pulse 98 95 Oximetry 05/31/21 05/31/21 05/31/21 08:17 08:42 11:39 Temperature 98.0 F Pulse Rate 73 Pulse Rate [ 65 From Monitor] Respiratory 18 18 Rate Blood Pressure 196/65 O2 Sat by Pulse 96 98 97 Oximetry 05/31/21 12:08 Temperature Pulse Rate 75 Pulse Rate [ From Monitor] Respiratory Rate Blood Pressure 219/70 O2 Sat by Pulse 92 Oximetry - Lab 05/29/21 06:54 05/31/21 04:38 Most recent lab results Calcium 8.9 mg/dL (8.4-10.2) 05/31/21 04:38 Medications & Allergies - Medications Allergies/Adverse Reactions: Allergies No Known Allergies Allergy (Verified 05/28/21 12:27) Home Medications: Home Medications Medication Instructions Recorded Confirmed Last Taken Type Glimepiride [Amaryl] 1 mg PO QAM #30 05/30/21 Unknown Rx Hydralazine HCl 50 BID 05/30/21 Unknown History NIFEdipine XL [Procardia Xl] 90 mg PO QDAY #30 tablet 05/30/21 Unknown Rx Simvastatin 40 QHS 05/30/21 Unknown History Tamsulosin [Flomax] 0.4 mg PO QDAY #30 capsule 05/30/21 Unknown Rx cloNIDine 0.2 BID 05/30/21 Unknown History Active Medications: Generic Name Dose Route Start Last Admin Trade Name Freq PRN Reason Stop Dose Admin Acetaminophen 650 mg 05/28/21 00:52 Acetaminophen 325 Mg Tab PO Q4H PRN Pain MILD(1-3)/Fever >100.5/ANDINO Albuterol 2.5 mg 05/28/21 00:52 Albuterol 2.5 Mg/3 Ml Nebu IH Q4HRT PRN Shortness Of Breath Atorvastatin Calcium 40 mg 05/28/21 22:00 05/30/21 21:44 Atorvastatin 40 Mg Tab PO 40 mg QHS JONATAN Administration Dextrose 0 ml 05/28/21 00:52 Dextrose 50% In Water (25gm) 50 Ml Syringe IV Q30MIN PRN Hypoglycemia Protocol Famotidine 10 mg 05/30/21 22:00 05/31/21 09:38 Famotidine 10 Mg Tab PO 10 mg BID JONATAN Administration Hydralazine HCl 50 mg 05/31/21 14:00 Hydralazine 25 Mg Tab PO Q8HR [facility] Insulin Human Lispro 0 unit 05/28/21 06:00 05/31/21 12:01 Insulin Lispro 100 Unit/Ml SUB-Q Not Given Q6HR [facility] Protocol Nifedipine 60 mg 05/30/21 10:00 05/31/21 09:38 Nifedipine Xl 60 Mg Tab PO 60 mg QDAY JONATAN Administration Ondansetron HCl 4 mg 05/28/21 00:52 Ondansetron 4 Mg/2 Ml Inj IV Q8H PRN Nausea And Vomiting Sodium Chloride 10 ml 05/28/21 10:00 05/31/21 09:39 Sodium Chloride 0.9% 10 Ml Flush Syringe IV Not Given BID JONATAN Sodium Chloride 10 ml 05/28/21 00:52 Sodium Chloride 0.9% 10 Ml Flush Syringe IV PRN PRN LINE FLUSH Tamsulosin HCl 0.4 mg 05/30/21 10:00 05/31/21 09:38 Tamsulosin 0.4 Mg Cap PO 0.4 mg QDAY JONATAN Administration
[2021-05-31] MEDS ORDERED: hydrALAZINE 25 MG TAB PO SCH (14:00)
[2021-05-31 14:29] VITALS: BP 112/69
--- NOTE | 2021-05-31 14:33 | Discharge Summary ---
Providers - Providers Date of Admission: 05/27/21 22:42 Date of discharge: 05/31/21 Attending physician: DOREEN SULLIVAN 05/28/21 00:52 Consult to Dietitian/Nutrition [CONS] Routine Physician Instructions: Reason For Exam: Reason for Consult: Diet education Consult to Physician [CONS] Routine Comment: Consulting Provider: DWAYNE LEZAMA Physician Instructions: Reason For Exam: cva Occupational Therapy Evaluate and Treat [CONS] Routine Comment: Reason For Exam: Neuro deficits Physical Therapy Evaluation and Treat [CONS] Routine Comment: Reason For Exam: Neuro deficits 05/29/21 12:02 Consult to Physician [CONS] Routine Comment: Consulting Provider: CHANI KING Physician Instructions: Reason For Exam: too Primary care physician: PR[employer] OPERATIONS INSPECTOR Hospitalization Condition: Stable Disposition: 01 HOME / SELF CARE / HOMELESS Exam - Constitutional Vitals: Temp Pulse Resp BP Pulse Ox 98.0 F 74 18 112/69 92 05/31/21 08:17 05/31/21 13:40 05/31/21 11:39 05/31/21 13:40 05/31/21 12:08 Plan Follow up with: JUN PRICE MD [Staff Physician] - 14 Days RUPERTO BROWN MD [Primary Care Provider] - 3-5 Days CHANI KING MD [Staff Physician] - 7 Days Prescriptions: Glimepiride [Amaryl] 1 mg PO QAM #30 Tamsulosin [Flomax] 0.4 mg PO QDAY #30 capsule NIFEdipine XL [Procardia Xl] 90 mg PO QDAY #30 tablet
== END 2021-05-31 13:30 | disposition home or self-care (01) | DRG 86 ==
LOC: ED 16:53 → 4A 22:42
PROVIDERS: ADMIT Hospitalist; ATTEND Internal Medicine
DX: S06.5X0A Traumatic subdural hemorrhage without loss of consciousness, initial encounter (principal); I16.1 Hypertensive emergency; G45.9 Transient cerebral ischemic attack, unspecified; N17.9 Acute kidney failure, unspecified; E87.1 Hypo-osmolality and hyponatremia; I67.4 Hypertensive encephalopathy; R13.10 Dysphagia, unspecified; W18.39XA Other fall on same level, initial encounter; Y93.89 Activity, other specified; Y92.89 Other specified places as the place of occurrence of the external cause; Y99.8 Other external cause status; Z79.899 Other long term (current) drug therapy; I12.9 Hypertensive chronic kidney disease with stage 1 through stage 4 chronic kidney disease, or unspecified chronic kidney disease; E11.22 Type 2 diabetes mellitus with diabetic chronic kidney disease; R33.9 Retention of urine, unspecified; N18.30 Chronic kidney disease, stage 3 unspecified
CPT/HCPCS: 36415; 70450; 70544; 70551; 72125; 76770; 80048; 80053; 80061; 81001; 82550; 82553; 82962; 83036; 84484; 85025; 85610; 85670; 85730; 93005; 93306; 93880; 93975; 94640; G0378; J3490; Q9967; J1644; J1815

== ENCOUNTER 2022-01-17 22:47 | Emergency (ER) | payer MEDICARE ==
[2022-01-17 23:11] VITALS: BP 180/54
[2022-01-18 00:45] LABS: WBC,Urine < 1.0 /HPF (0.0-6.0)
[2022-01-18 00:47] LABS: Color,Urine Yellow (Yellow)
== END 2022-01-18 05:44 | disposition left against medical advice (07) ==
LOC: ED 22:47
DX: R10.9 Unspecified abdominal pain (principal); Z53.21 Procedure and treatment not carried out due to patient leaving prior to being seen by health care provider
CPT/HCPCS: 81001